=== PATIENT | female | born 1995 | race Caucasian/White ===

== ENCOUNTER 2019-01-04 17:29 | Emergency (ER) | payer BC, SELFPAY ==
[2019-01-04 17:42] VITALS: BP 105/70; PULSE 118; RESP 18; TEMP 37.5; O2SAT 100; BMI 25.9
--- NOTE | 2019-01-04 17:49 | DI.RAD.S_ITS ---
PROCEDURE: XR CHEST 2V INDICATIONS: pain right posterior chest w/ inispiration / movement. TECHNIQUE: 2 views of the chest were acquired. COMPARISON: None. FINDINGS: Surgical changes and devices: External material overlies left apex. Lungs and pleura: Lungs are clear as visualized with suboptimal evaluation of the left apex. No pleural effusions or pneumothorax. Mediastinum: Mediastinal contours are normal. Heart size is normal. Bones and chest wall: No suspicious bony abnormalities. Soft tissues appear unremarkable. IMPRESSION: No acute process. Dictated by: Abdoulaye Morales M.D. on 01/04/2019 at 20:32 Approved by: Abdoulaye Morales M.D. on 01/04/2019 at 20:34
--- NOTE | 2019-01-04 18:08 | ED.BACK ---
HPI - Back Pain/Injury General Chief Complaint: Back Pain/Injury Stated Complaint: NOT FEELING WELL Time Seen by Provider: 01/04/19 18:07 Source: patient and family Mode of arrival: ambulatory Limitations: no limitations History of Present Illness HPI Narrative: 23-year-old female occasional smoker presents with all host of symptoms but largely states she just does not feel well. She states she has been working 16 hour shifts back to back to back and feels run down. She is a bit dizzy and lightheaded and has developed a bit of a headache. She has had a poor appetite and states she surely has not been eating or drinking enough water. Furthermore she has had urinary frequency, urgency and states her urine is dark and foul smelling. She does have some left flank pain which is worse with motion and improves with rest. Patient also complains that she has developed a cold sore over the week and MD Complaint: back pain Onset (ago): day(s) Duration: progressively worsening Similar Symptoms Previously: No Location: left flank Severity: moderate Quality: aching Exacerbating factors: movement Associated symptoms: weakness, fatigue, increased urinary urgency, increased urinary frequency, fever and chills Related Data Home Medications Medication Instructions Recorded Confirmed acyclovir 800 mg PO TID 01/04/19 01/04/19 ibuprofen 200 mg PO Q6H PRN 01/04/19 01/04/19 Previous Rx's Medication Instructions Recorded acyclovir 400 mg PO TID 7 Days #21 tab 01/04/19 cephalexin [Keflex] 500 mg PO QID 10 Days #40 cap 01/04/19 Allergies Allergy/AdvReac Type Severity Reaction Status Date / Time No Known Drug Allergies Allergy Verified 01/04/19 17:47 Review of Systems Constitutional Reports chills, Reports fever(s), Reports headache(s), Denies lethargy and Reports weakness Eyes Denies change in vision, Denies eye discharge, Denies irritation and Denies loss of vision ENT Ears, Nose, Mouth, and Throat: Denies change in voice, Reports headache(s), Denies neck pain and Denies sore throat Cardiovascular Denies chest pain, Denies irregular heart rhythm, Denies lightheadedness, Denies palpitations, Denies dyspnea, Denies dyspnea on exertion and Denies orthopnea Respiratory Denies cough, Denies dyspnea, Denies dyspnea on exertion and Denies wheezing Gastrointestinal Gastrointestinal: Denies abdominal pain, Denies change in bowel habits, Denies diarrhea, Denies nausea and Denies vomiting Genitourinary Denies hematuria, Reports flank pain, Denies urinary incontinence and Reports urinary urgency Musculoskeletal Denies neck pain Integumentary/Breasts Denies pruritus, Denies erythema, Denies rash, Reports sores and Denies wounds Neurologic Denies confusion, Reports headache(s), Denies loss of vision and Reports weakness Psychiatric Denies anxiety, Denies confusion, Denies depression, Denies homicidal ideation and Denies suicidal ideation Endocrine Denies palpitations Hematologic/Lymphatic Denies easy bruising Allergic/Immunologic Denies wheezing PFSH Social History Smoking Status: Current every day smoker Social History Smoking Status: Current every day smoker Exam Narrative Exam Narrative: GENERAL: 23-year-old female clearly not feeling well, laying on her side HEAD: Atraumatic. Normocephalic. No temporal or scalp tenderness. EYES: Pupils equal round and reactive. Extraocular motions intact. No scleral icterus. No injection or drainage. ENT: Dry mucous membranes. 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 Nose without bleeding, purulent drainage or septal hematoma. Throat without erythema, tonsillar hypertrophy or exudate. Uvula midline. Airway patent. NECK: Trachea midline. No JVD or lymphadenopathy. Supple, nontender, no meningeal signs. CARDIOVASCULAR: Regular rate and rhythm without murmurs, gallops, or rubs. RESPIRATORY: Clear to auscultation. Breath sounds equal bilaterally. No wheezes, rales, or rhonchi. GASTROINTESTINAL: Abdomen soft, non-tender, nondistended. No hepato-splenomegaly, or palpable masses. No guarding. EXTREMITIES: No clubbing, cyanosis, or edema. No joint tenderness, effusion, or edema noted. BACK: Nontender without deformity or crepitance. No flank tenderness. NEURO: AOx3. SKIN: No rash or erythema. Initial Vital Signs Initial Vital Signs: Vital Signs Temperature 99.5 F 01/04/19 17:42 Pulse Rate 118 H 01/04/19 17:42 Respiratory Rate 18 01/04/19 17:42 Blood Pressure 105/70 01/04/19 17:42 Pulse Oximetry 100 01/04/19 17:42 Course Orders Ordered: ED Orders 01/04/19 17:49 XR chest 2V Stat 01/04/19 17:59 Complete Blood Count AUTO DIFF Stat Comprehensive Metabolic Panel Stat 01/04/19 20:02 Urine Culture Stat Urine Microscopic Stat Discontinued Medications Sodium Chloride (Normal Saline 0.9%) 1,000 mls @ 1,000 mls/hr IV BOLUS ONE Stop: 01/04/19 19:29 Last Infusion: 01/04/19 19:49 Dose: 0 mls/hr Admin: 01/04/19 18:54 Dose: 1,000 mls/hr Ceftriaxone Sodium/Dextrose (Rocephin) 1 gm in 50 mls @ 100 mls/hr IV NOW ONE Stop: 01/04/19 20:40 Last Infusion: 01/04/19 20:50 Dose: 0 mls/hr Admin: 01/04/19 20:20 Dose: 100 mls/hr Sodium Chloride (Normal Saline 0.9%) 1,000 mls @ 1,000 mls/hr IV BOLUS ONE Stop: 01/04/19 22:02 Last Infusion: 01/04/19 21:45 Dose: 0 mls/hr Admin: 01/04/19 20:20 Dose: 1,000 mls/hr Ketorolac Tromethamine (Toradol) 30 mg IV NOW ONE Stop: 01/04/19 18:50 Last Admin: 01/04/19 18:50 Dose: 30 mg Ondansetron HCl (Zofran Odt) 4 mg PO NOW ONE Stop: 01/04/19 18:14 Last Admin: 01/04/19 18:15 Dose: 4 mg Pantoprazole Sodium (Protonix) 40 mg IV NOW ONE Stop: 01/04/19 18:31 Last Admin: 01/04/19 18:54 Dose: 40 mg Vital Signs - 8 hr 01/04/19 17:42 01/04/19 18:14 01/04/19 20:33 Temperature 99.5 F Pulse Rate 118 H 102 H 92 H Respiratory Rate 18 16 Blood Pressure 105/70 Blood Pressure [Left Arm] 95/67 Pulse Oximetry 100 97 95 01/04/19 21:39 Temperature Pulse Rate 101 H Respiratory Rate 17 Blood Pressure Blood Pressure [Left Arm] 93/47 L Pulse Oximetry 99 MDM - Back Pain/Injury Lab Data Result diagrams: 01/04/19 17:59 01/04/19 17:59 Lab Results 06/01/04/19 01/04/19 Range/Units 17:59 17:59 20:02 WBC 13.1 H (4.5-11.0) X10^3/uL RBC 5.05 (4.0-5.2) X10^6/uL Hgb 14.6 (12.0-16.0) g/dL Hct 43.8 (36-46) % MCV 86.9 (80-100) fL MCH 28.9 (26-34) PG MCHC 33.3 (30-36) % RDW 13.3 (11.6-14.8) % Plt Count 259 (150-400) X10^3/uL Neut % (Auto) 80.0 H (50-75) % Lymph % (Auto) 9.9 L (25-40) % [place] % (Auto) 9.6 (3-14) % Eos % (Auto) 0.2 L (2-4) % Baso % (Auto) 0.3 (0-2) % Neut # (Auto) 92930 H (7519-2595) /uL Lymph # (Auto) 1300 (5605-1703) /uL [place] # (Auto) 1300 H (0-900) /uL Eos # (Auto) 0 (0-450) /uL Baso # (Auto) 0 (0-100) /uL Total Counted Cancelled Seg Neutrophils % Cancelled Band Neutrophils % Cancelled Lymphocytes % (Manual) Cancelled Atypical Lymphs % Cancelled Monocytes % (Manual) Cancelled Eosinophils % (Manual) Cancelled Basophils % (Manual) Cancelled Metamyelocytes % Cancelled Myelocytes % Cancelled Promyelocytes % Cancelled Blast Cells % Cancelled Neutrophils # (Manual) Cancelled Nucleated RBCs Cancelled Differential Comment Cancelled Hypersegmented Neuts Cancelled Hypogranular Neuts Cancelled Reactive Lymphocytes Cancelled Plasma Cells Cancelled Smudge Cells Cancelled Other Cell Type Cancelled Toxic Granulation Cancelled Toxic Vacuolation Cancelled Dohle Bodies Cancelled Juvenal Rods Cancelled WBC Morphology Comment Cancelled Platelet Estimate Cancelled Clumped Platelets Cancelled Plt Morphology Comment Cancelled RBC Morphology Cancelled Dimorphic RBCs Cancelled Polychromasia Cancelled Hypochromasia Cancelled Poikilocytosis Cancelled Basophilic Stippling Cancelled Anisocytosis Cancelled Microcytosis Cancelled Macrocytosis Cancelled Spherocytes Cancelled Pappenheimer Bodies Cancelled Sickle Cells Cancelled Target Cells Cancelled Tear Drop Cells Cancelled Ovalocytes Cancelled Stomatocytes Cancelled Helmet Cells Cancelled Dejesus-Needles Bodies Cancelled [place] Rings Cancelled [place] Cells Cancelled Acanthocytes (Spur) Cancelled Rouleaux Cancelled Schistocytes Cancelled Sodium 139 (137-145) mmol/L Potassium 4.0 (3.4-5.1) mmol/L Chloride 104 (98-107) mmol/L Carbon Dioxide 25 (22-32) mmol/L BUN 7 (7-17) mg/dL Creatinine 0.60 (0.52-1.04) mg/dL Estimated GFR > 60.0 (>60) mL/min BUN/Creatinine Ratio 11.7 (6-22) Glucose 91 (70-100) mg/dL Calcium 9.2 (8.4-10.2) mg/dL Total Bilirubin 0.5 (0.2-1.3) mg/dL AST 24 (14-36) IU/L ALT 20 (9-52) IU/L Alkaline Phosphatase 47 (38-126) U/L Total Protein 7.4 (6.3-8.2) g/dL Albumin 4.1 (3.5-5.0) g/dL Globulin 3.3 (1.7-4.1) g/dL Albumin/Globulin Ratio 1.2 (1.0-2.8) Urine RBC 5-10/hpf H (0-5/HPF) Urine WBC 30-100/hpf H (0-5/HPF) Ur Squamous Epith Cells 1-5 /hpf (0-5/HPF) Ur Transition Epith Cell 1-5/hpf (0-5/HPF) Urine Bacteria Many (>30) H (None) Ur Culture Indicated? Specimen cultured Point of Care Testing Test Results Negative Urine Dip Bedside Urine Glucose Negative Bedside Urine Bilirubin - Negative Bedside Urine Ketone +++ 80 Urine Specific [place] 1.020 Bedside Urine Occult Blood + Bedside Urine pH 6.0 Bedside Urine Protein +/- 15 Bedside Urine Urobilinogen - Negative Bedside Urine Nitrite + Positive Bedside Urine Leukocytes +++ 500 Esterase MDM Narrative Medical decision making narrative: 23F with multiple complaints including fatigue, JAVIER, urine trouble, flank pain and lip ulcers. She shows tremendous improvement with fluids, toradol and zofran. 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 Patient not septic, responds to fluids and feeling better. Patient and family had all questions answered to their apparent satisfaction Discharge Plan Departure Patient Disposition: Home Clinical Impression: Acute dehydration, Cold sore, Pyelonephritis Fatigue Qualifiers: Fatigue type: unspecified Qualified Code(s): R53.83 - Other fatigue Interventions: ED Discharge Assessment Last Done: 01/04/19 21:55 Instructions: DI for Dehydration -- Adult, DI for Cold Sores Activity Restrictions/Additional Instructions: *You have been diagnosed with [ pyelonephritis, dehydration, weakness ] *What to do: *Take medications as directed *Follow up with your primary care provider in 2-3 days, call for an appointment. Let them know you were seen in the Emergency Department and that we ask that you be seen in follow up *Return to ER if you should have any new, worsening or concerning symptoms Prescriptions: New acyclovir 400 mg tablet 400 mg PO TID 7 Days Qty: 21 RF: 0 cephalexin [Keflex] 500 mg capsule 500 mg PO QID 10 Days Qty: 40 RF: 0 No Action ibuprofen 200 mg Capsule 200 mg PO Q6H PRN (Reason: Pain (Scale Score 4-6)) RF: 0 acyclovir 400 mg Tablet 800 mg PO TID RF: 0
[2019-01-04 18:14] VITALS: PULSE 102; O2SAT 97
[2019-01-04] MEDS: ONDANSETRON 4 MG ODT PO (18:15)
[2019-01-04 18:35] LABS: Add Manual Diff / Slide Review NO; Alanine Aminotransferase 20 IU/L (9-52); Albumin 4.1 g/dL (3.5-5.0); Albumin Globulin Ratio 1.2 (1.0-2.8); Alkaline Phosphatase 47 U/L (38-126); Aspartate Aminotransferase 24 IU/L (14-36); BUN Creatinine Ratio 11.7 (6-22); Basophils Absolute Auto 0 /uL (0-100); Basophils Percent Auto 0.3 % (0-2); Bilirubin Total 0.5 mg/dL (0.2-1.3); Blood Urea Nitrogen 7 mg/dL (7-17); Calcium 9.2 mg/dL (8.4-10.2); Carbon Dioxide 25 mmol/L (22-32); Chloride 104 mmol/L (98-107); Eosinophils Absolute Auto 0 /uL (0-450); Eosinophils Percent Auto 0.2 % (2-4); Estimated Glomerular Filt Rate > 60.0 mL/min (>60); Globulin 3.3 g/dL (1.7-4.1); Glucose 91 mg/dL (70-100); HEMOLYSIS < 15 (0-50); Hematocrit 43.8 % (36-46); Hemoglobin 14.6 g/dL (12.0-16.0); Lymphocytes Absolute Auto 1300 /uL (1100-4500); Lymphocytes Percent Auto 9.9 % (25-40); Mean Corpuscular HGB Conc 33.3 % (30-36); Mean Corpuscular Hemoglobin 28.9 PG (26-34); Mean Corpuscular Volume 86.9 fL (80-100); Monocytes Absolute Auto 1300 /uL (0-900); Monocytes Percent Auto 9.6 % (3-14); Neutrophils Absolute Auto 10500 /uL (1500-7000); Platelet Count 259 X10^3/uL (150-400); Red Blood Cell Count 5.05 X10^6/uL (4.0-5.2); Red Cell Distribution Width 13.3 % (11.6-14.8); Sodium 139 mmol/L (137-145); Total Protein 7.4 g/dL (6.3-8.2); White Blood Cell Count 13.1 X10^3/uL (4.5-11.0)
[2019-01-04] MEDS: KETOROLAC 60 MG/2 ML VIAL 30 MG IV (18:50)
[2019-01-04] MEDS: PANTOPRAZOLE 40 MG VIAL IV (18:54)
[2019-01-04] MEDS: SODIUM CHLORIDE 0.9% 1,000 ML 1000 ML IV ×2 (18:54→20:20)
[2019-01-04 20:19] LABS: Bacteria Urine Many (>30); Culture Indicated Urine Specimen Cultured; RBC Urine 5-10/HPF (0-5/HPF); Squamous Epithelial Cell Urine 1-5 /HPF (0-5/HPF); Transitional Epi Cells Urine 1-5/HPF (0-5/HPF); WBC Urine 30-100/HPF (0-5/HPF)
[2019-01-04] MEDS: CEFTRIAXONE 1 GM/50 ML FROZ.PIGGY IV (20:20)
[2019-01-04 20:33] VITALS: BP 95/67; PULSE 92; RESP 16; O2SAT 95
[2019-01-04 21:39] VITALS: BP 93/47; PULSE 101; RESP 17; O2SAT 99
== END 2019-01-04 21:47 | disposition home or self-care (01) ==
PROVIDERS: Emergency Medicine; Emergency Provider Emergency Medicine
DX: E86.0 Dehydration (principal); B00.1 Herpesviral vesicular dermatitis; N12 Tubulo-interstitial nephritis, not specified as acute or chronic; R53.83 Other fatigue
CPT/HCPCS: 36415; 71046; 80053; 81003; 81015; 81025; 85025; 87077; 87086; 87186; 96361; 96365; 96375; 99284; C9113; J1885

== ENCOUNTER 2020-02-09 14:32 | Emergency (ER) | payer OTHER, MEDICAID, SELFPAY ==
[2020-02-09] VITALS (7 sets, daily range): BP systolic 102–118; BP diastolic 64–76; PULSE 81–104; RESP 8–24; TEMP 37; O2SAT 99–100; BMI 27.3
[2020-02-09 15:27] LABS: Prothrombin Time 11.9 SECONDS (10.1-12.7)
[2020-02-09 15:29] LABS: PTT Partial Thromboplastin Tim 31 SECONDS (26.4-36.2)
[2020-02-09 15:39] LABS: Alanine Aminotransferase 20 IU/L (<35); Albumin 3.9 g/dL (3.5-5.0); Albumin Globulin Ratio 1.3 (1.0-2.8); Alkaline Phosphatase 42 U/L (38-126); Aspartate Aminotransferase 30 IU/L (14-36); BUN Creatinine Ratio 16.7 (6-22); Bilirubin Total 0.5 mg/dL (0.2-1.3); Blood Urea Nitrogen 8 mg/dL (7-17); Carbon Dioxide 21 mmol/L (22-32); Chloride 109 mmol/L (98-107); Estimated Glomerular Filt Rate > 60.0 mL/min (>60); Glucose 98 mg/dL (70-100); HEMOLYSIS < 15 (0-50); Lipase 43 U/L (23-300); Potassium 3.9 mmol/L (3.4-5.1); Sodium 137 mmol/L (137-145); Total Protein 6.9 g/dL (6.3-8.2)
[2020-02-09 15:43] LABS: Add Manual Diff / Slide Review NO; Basophils Absolute Auto 100 /uL (0-100); Basophils Percent Auto 0.6 % (0-2); Eosinophils Absolute Auto 100 /uL (0-450); Eosinophils Percent Auto 1.1 % (2-4); Hematocrit 39.4 % (36-46); Hemoglobin 13.3 g/dL (12.0-16.0); Lymphocytes Absolute Auto 1700 /uL (1100-4500); Lymphocytes Percent Auto 17.6 % (25-40); Mean Corpuscular HGB Conc 33.8 % (30-36); Mean Corpuscular Hemoglobin 29.3 PG (26-34); Mean Corpuscular Volume 86.7 fL (80-100); Monocytes Absolute Auto 900 /uL (0-900); Monocytes Percent Auto 8.9 % (3-14); Neutrophils Absolute Auto 7000 /uL (1500-7000); Neutrophils Percent Auto 71.8 % (50-75); Platelet Count 250 X10^3/uL (150-400); Red Blood Cell Count 4.54 X10^6/uL (4.0-5.2); Red Cell Distribution Width 14.3 % (11.6-14.8); White Blood Cell Count 9.8 X10^3/uL (4.5-11.0)
--- NOTE | 2020-02-09 15:48 | ED_ITS ---
HPI - Abdominal Pain <Alonzo Whitt MD - Last Filed: 02/20/20 17:57> General Chief Complaint: Abdominal Pain Stated Complaint: severe abd pain/dizzy x2 days Time Seen by Provider: 02/09/20 15:41 Source: patient Mode of arrival: Wheelchair Limitations: no limitations History of Present Illness HPI narrative: Patient complains of ongoing 2 days constant upper and lower abdominal pain. Worse with movement. Better with lying still. No nausea or vomiting. At times feels dizzy. No chest pain. No back pain. No numbness tingling or weakness. LMP 4 weeks ago. Denies Related Data Home Medications Medication Instructions Recorded Confirmed acyclovir 800 mg PO TID 01/04/19 02/13/20 ibuprofen 200 mg PO Q6H PRN 01/04/19 02/13/20 Previous Rx's Medication Instructions Recorded prenat.vits,malina,gio-kubw-launs 1 tab PO DAILY #30 tab 02/09/20 hydrocodone-acetaminophen 1 tab PO Q4-6H PRN #10 tab 02/11/20 ondansetron 4 mg PO Q6H PRN #20 tab 02/11/20 Allergies Allergy/AdvReac Type Severity Reaction Status Date / Time No Known Drug Allergies Allergy Verified 02/13/20 15:50 Review of Systems <Alonzo Whitt MD - Last Filed: 02/20/20 17:57> Review of Systems Narrative: GENERAL: Denies chills, fatigue, malaise, fever, sweats. HEENT: Denies sinus pain, ear pain, sore throat, difficulty swallowing, dizziness. RESPIRATORY: Denies dyspnea, cough, wheezing, hemoptysis, sputum. CARDIOVASCULAR: Denies chest pain, palpitations, orthopnea, edema, GASTROINTESTINAL: Denies any nausea vomiting diarrhea. Complains of abdominal pain : Denies dysuria, frequency, incontinence, hematuria, urinary retention. MUSCULOSKELETAL: denies weakness, joint pain, or bony pain SKIN: Denies rash, skin lesions, or other NEUROLOGIC: Denies weakness, headache, numbness, change in speech, confusion, seizures, incoordination. PSYCHIATRIC: No concerning psychosocial issues. ROS Unobtainable: All systems reviewed & are unremarkable except as noted in HPI and below Patient History <Alonzo Whitt MD - Last Filed: 08/10/20 17:57> Medical History (Updated 02/19/20 @ 20:17 by Erin Vargas) Gluten enteropathy (Chronic) Social History Smoking Status: Current every day smoker Smoking Status: Current every day smoker alcohol intake frequency: 3 or more drinks per day Substance Use Type: does not use Exam <Alonzo Whitt MD - Last Filed: 02/20/20 17:57> Narrative Exam Narrative: GENERAL: patient appears stated age. Well-nourished, well- developed patient, in no distress, not toxic HEAD: Atraumatic. Normocephalic. EYES: Pupils equal round and reactive. Extraocular motions intact. No scleral icterus. No injection or drainage. ENT: Nose without bleeding, purulent drainage. Throat without erythema, tonsillar hypertrophy or exudate. Airway patent. NECK: Trachea midline. Non tender CARDIOVASCULAR: Regular rate and rhythm without murmurs, gallops, or rubs. RESPIRATORY: Clear to auscultation. Breath sounds equal bilaterally. No wheezes, rales, or rhonchi. GASTROINTESTINAL: Abdomen soft, mild diffuse tenderness no peritoneal signs bowel sounds present : female nurse Elen, sensory scientist, normal external exam. No blood or discharge in the vaginal vault, no CMT no blood at os or tissue at the os. Os is closed. No adnexal tenderness EXTREMITIES: No edema or joint tenderness. BACK: Nontender without deformity or crepitance. No flank tenderness. NEURO: AOx3. SKIN: No rash or erythema of visible areas PSYCH: Not anxious, is cooperative Initial Vital Signs Initial Vital Signs: Vital Signs Temperature 98.6 F 02/09/20 14:37 Pulse Rate 104 H 02/09/20 14:37 Respiratory Rate 14 02/09/20 14:37 Blood Pressure 108/76 02/09/20 14:37 Pulse Oximetry 100 02/09/20 14:37 <Marisela Mcclain MD - Last Filed: 02/09/20 23:53> Initial Vital Signs Initial Vital Signs: Vital Signs Temperature 98.6 F 02/09/20 14:37 Pulse Rate 104 H 02/09/20 14:37 Respiratory Rate 14 02/09/20 14:37 Blood Pressure 108/76 02/09/20 14:37 Pulse Oximetry 100 02/09/20 14:37 Course <Alonzo Whitt MD - Last Filed: 02/20/20 17:57> Course Course Narrative: s/o dr mcclain...will follow labs and s/w pt about decision about Orders Ordered: Discontinued Medications Sodium Chloride (Normal Saline 0.9%) 1,000 mls @ 1,000 mls/hr IV BOLUS ONE Stop: 02/09/20 16:46 Last Infusion: 02/09/20 17:13 Dose: 0 mls/hr Documented by: Admin: 02/09/20 16:25 Dose: 1,000 mls/hr Documented by: RADHA Magnesium Citrate (Magnesium Citrate) 300 ml PO NOW ONE Stop: 02/09/20 20:46 Last Admin: 02/09/20 20:49 Dose: 300 ml Documented by: RADHA Reevaluation(s) Reevaluation #1: Spoke with patient regarding discussion with OBGYN, patient does not know at this time whether she was taking with the or terminate. She needs time to think about it. Time: 19:39 Consultations Consultation #1: Spoke with obgyn dr lopez who referred me to dr davila...i s/w dr davila and he states patient has 2 choices. Terminate or continue with pr egnancy. If she desires to terminate the methotrexate 100 mg IM can be given here and he can follow patient tomorrow in the office. Second choice to continue with and would still need repeat 2 cycles of quantitative hCG. He would see patient as well in the office. Phone number [phone]. Time: 19:40 Vital Signs Vital signs: Vital Signs - 8 hr 02/09/20 16:00 02/09/20 16:30 02/09/20 17:00 Pulse Rate 81 86 86 Respiratory Rate 13 14 21 Blood Pressure 107/71 108/65 102/64 Pulse Oximetry 99 99 100 02/09/20 20:57 Pulse Rate 83 Respiratory Rate 12 Blood Pressure 118/69 Pulse Oximetry 99 <Marisela Mcclain MD - Last Filed: 02/09/20 23:53> Orders Ordered: Discontinued Medications Sodium Chloride (Normal Saline 0.9%) 1,000 mls @ 1,000 mls/hr IV BOLUS ONE Stop: 02/09/20 16:46 Last Infusion: 02/09/20 17:13 Dose: 0 mls/hr Documented by: Admin: 02/09/20 16:25 Dose: 1,000 mls/hr Documented by: RADHA Magnesium Citrate (Magnesium Citrate) 300 ml PO NOW ONE Stop: 02/09/20 20:46 Last Admin: 02/09/20 20:49 Dose: 300 ml Documented by: RADHA Vital Signs Vital signs: Vital Signs - 8 hr 02/09/20 16:00 02/09/20 16:30 02/09/20 17:00 Pulse Rate 81 86 86 Respiratory Rate 13 14 21 Blood Pressure 107/71 108/65 102/64 Pulse Oximetry 99 99 100 02/09/20 20:57 Pulse Rate 83 Respiratory Rate 12 Blood Pressure 118/69 Pulse Oximetry 99 MDM - Abdominal Pain <Alonzo Whitt MD - Last Filed: 02/20/20 17:57> Lab Data Attestation: I reviewed the patient's lab results. Result diagrams: 02/09/20 15:08 02/09/20 15:08 Labs: Lab Results 02/09/20 02/09/20 02/09/20 Range/Units 15:08 15:08 15:08 WBC 9.8 (4.5-11.0) X10^3/uL RBC 4.54 (4.0-5.2) X10^6/uL Hgb 13.3 (12.0-16.0) g/dL Hct 39.4 (36-46) % MCV 86.7 (80-100) fL MCH 29.3 (26-34) PG MCHC 33.8 (30-36) % RDW 14.3 (11.6-14.8) % Plt Count 250 (150-400) X10^3/uL Neut % (Auto) 71.8 (50-75) % Lymph % (Auto) 17.6 L (25-40) % [place] % (Auto) 8.9 (3-14) % Eos % (Auto) 1.1 L (2-4) % Baso % (Auto) 0.6 (0-2) % Neut # (Auto) 7000 (2746-5426) /uL Lymph # (Auto) 1700 (8464-1742) /uL [place] # (Auto) 900 (0-900) /uL Eos # (Auto) 100 (0-450) /uL Baso # (Auto) 100 (0-100) /uL PT 11.9 (10.1-12.7) SECONDS INR 1.0 (0.9-1.3) APTT 31 (26.4-36.2) SECONDS Sodium 137 (137-145) mmol/L Potassium 3.9 (3.4-5.1) mmol/L Chloride 109 H (98-107) mmol/L Carbon Dioxide 21 L (22-32) mmol/L BUN 8 (7-17) mg/dL Creatinine 0.48 L (0.52-1.04) mg/dL Estimated GFR > 60.0 (>60) mL/min BUN/Creatinine Ratio 16.7 (6-22) Glucose 98 (70-100) mg/dL Calcium 9.0 (8.4-10.2) mg/dL Total Bilirubin 0.5 (0.2-1.3) mg/dL AST 30 (14-36) IU/L ALT 20 (<35) IU/L Alkaline Phosphatase 42 (38-126) U/L Total Protein 6.9 (6.3-8.2) g/dL Albumin 3.9 (3.5-5.0) g/dL Globulin 3.0 (1.7-4.1) g/dL Albumin/Globulin Ratio 1.3 (1.0-2.8) Lipase 43 (23-300) U/L HCG, Quant mIU/mL Serum , Qual (Negative) Ref Test (Refrig) (.) Blood Type Antibody Screen 02/09/20 02/09/20 02/09/20 Range/Units 15:08 15:08 18:05 WBC (4.5-11.0) X10^3/uL RBC (4.0-5.2) X10^6/uL Hgb (12.0-16.0) g/dL Hct (36-46) % MCV (80-100) fL MCH (26-34) PG MCHC (30-36) % RDW (11.6-14.8) % Plt Count (150-400) X10^3/uL Neut % (Auto) (50-75) % Lymph % (Auto) (25-40) % [place] % (Auto) (3-14) % Eos % (Auto) (2-4) % Baso % (Auto) (0-2) % Neut # (Auto) (9589-4618) /uL Lymph # (Auto) (5806-7875) /uL [place] # (Auto) (0-900) /uL Eos # (Auto) (0-450) /uL Baso # (Auto) (0-100) /uL PT (10.1-12.7) SECONDS INR (0.9-1.3) APTT (26.4-36.2) SECONDS Sodium (137-145) mmol/L Potassium (3.4-5.1) mmol/L Chloride (98-107) mmol/L Carbon Dioxide (22-32) mmol/L BUN (7-17) mg/dL Creatinine (0.52-1.04) mg/dL Estimated GFR (>60) mL/min BUN/Creatinine Ratio (6-22) Glucose (70-100) mg/dL Calcium (8.4-10.2) mg/dL Total Bilirubin (0.2-1.3) mg/dL AST (14-36) IU/L ALT (<35) IU/L Alkaline Phosphatase (38-126) U/L Total Protein (6.3-8.2) g/dL Albumin (3.5-5.0) g/dL Globulin (1.7-4.1) g/dL Albumin/Globulin Ratio (1.0-2.8) Lipase (23-300) U/L HCG, Quant 354 mIU/mL Serum , Qual Positive H (Negative) Ref Test (Refrig) Comment (.) Blood Type Antibody Screen 02/09/20 Range/Units 19:05 WBC (4.5-11.0) X10^3/uL RBC (4.0-5.2) X10^6/uL Hgb (12.0-16.0) g/dL Hct (36-46) % MCV (80-100) fL MCH (26-34) PG MCHC (30-36) % RDW (11.6-14.8) % Plt Count (150-400) X10^3/uL Neut % (Auto) (50-75) % Lymph % (Auto) (25-40) % [place] % (Auto) (3-14) % Eos % (Auto) (2-4) % Baso % (Auto) (0-2) % Neut # (Auto) (9588-1502) /uL Lymph # (Auto) (9596-3545) /uL [place] # (Auto) (0-900) /uL Eos # (Auto) (0-450) /uL Baso # (Auto) (0-100) /uL PT (10.1-12.7) SECONDS INR (0.9-1.3) APTT (26.4-36.2) SECONDS Sodium (137-145) mmol/L Potassium (3.4-5.1) mmol/L Chloride (98-107) mmol/L Carbon Dioxide (22-32) mmol/L BUN (7-17) mg/dL Creatinine (0.52-1.04) mg/dL Estimated GFR (>60) mL/min BUN/Creatinine Ratio (6-22) Glucose (70-100) mg/dL Calcium (8.4-10.2) mg/dL Total Bilirubin (0.2-1.3) mg/dL AST (14-36) IU/L ALT (<35) IU/L Alkaline Phosphatase (38-126) U/L Total Protein (6.3-8.2) g/dL Albumin (3.5-5.0) g/dL Globulin (1.7-4.1) g/dL Albumin/Globulin Ratio (1.0-2.8) Lipase (23-300) U/L HCG, Quant mIU/mL Serum , Qual (Negative) Ref Test (Refrig) (.) Blood Type A Negative Antibody Screen Negative Point of care testing: Urine Dip Bedside Urine Glucose Negative Bedside Urine Bilirubin - Negative Bedside Urine Ketone +/- 5 Urine Specific [place] 1.015 Bedside Urine Occult Blood - Negative Bedside Urine pH 7.0 Bedside Urine Protein - Negative Bedside Urine Urobilinogen - Negative Bedside Urine Nitrite - Negative Bedside Urine Leukocytes - Negative Esterase Imaging Data US - OB: Radiologist's Impression: [address] [address] Ultrasound Report Signed Patient: Kaylan Horn#: [id number] : 1995Acct:[id number] Age/Sex: 24 / FDate of Service: 02/09/20 Loc: ED Accession Number: [id number] Procedure: US OB <= 14 weeks fetus Ordering Provider: Alonzo Whitt MD PROCEDURE: US OB TRANSVAGINAL INDICATIONS: ABDOMINAL PAIN RULE OUT ECTOPIC OUTSIDE/PRIOR DATING DATA: Last menstrual period (LMP): Unknown. LMP-based estimated date of delivery (STEPHANIE): Unknown First dating scan (date and location): 02/09/2020. Estimated date of delivery (STEPHANIE) from first dating scan: N/A TECHNIQUE: Real-time scanning was performed of the fetus, with image documentation. Endovaginal scanning: Performed for better visualization COMPARISON: None. FINDINGS: No findings of an intrauterine can be seen. There is hemorrhagic fluid seen within the cul-de-sac and within the adnexal regions. There is a potential right adnexal mass seen that measures 1.9 x 1.9 x 1.6 cm. Overall increased vascularity can be seen involving the right adnexal region. At a site of specific pain, 1 cm superior and to the left of the umbilicus, no abnormalities are seen at this site. The uterus measures 9.3 x 4.2 x 5.3 cm. The right ovary measures 4.6 x 2.5 x 3.3 cm, and demonstrates poorly defined borders. The left ovary measures 3.9 x 2.1 x 2 cm. A complex cyst is seen within the left ovary. IMPRESSION: An intrauterine is not seen. There is a potential ectopic seen on the right. A gynecological consultation is recommended. Close clinical followup, with serial beta-hCG and serial ultrasound are recommended, as clinically appropriate. Potential left ovarian hemorrhagic cyst versus corpus luteum. Note: Dr. Whitt was not available to discuss this case at the time of this dictation. Case discussed by telephone with nurse Barrett at 5:13 p.m. [place] time on February 09, 2020. He will discuss the case with Dr. Whitt, who will call back if there are any questions. Dictated by: Nnamdi López M.D. on 02/09/2020 at 17:04 Approved by: Nnamdi López M.D. on 02/09/2020 at 17:15 MDM Narrative Medical decision making narrative: Patient has follow-up. Appropriate for discharge home. OBGYN consult completed. Dr. Davila.. Has follow-up tomorrow. Has plan in place <Marisela Mcclain MD - Last Filed: 02/09/20 23:53> Medical Records Attestation: I reviewed the patient's medical records. Lab Data Attestation: I reviewed the patient's lab results. Labs: Lab Results 02/09/20 02/09/20 02/09/20 Range/Units 15:08 15:08 15:08 WBC 9.8 (4.5-11.0) X10^3/uL RBC 4.54 (4.0-5.2) X10^6/uL Hgb 13.3 (12.0-16.0) g/dL Hct 39.4 (36-46) % MCV 86.7 (80-100) fL MCH 29.3 (26-34) PG MCHC 33.8 (30-36) % RDW 14.3 (11.6-14.8) % Plt Count 250 (150-400) X10^3/uL Neut % (Auto) 71.8 (50-75) % Lymph % (Auto) 17.6 L (25-40) % [place] % (Auto) 8.9 (3-14) % Eos % (Auto) 1.1 L (2-4) % Baso % (Auto) 0.6 (0-2) % Neut # (Auto) 7000 (6728-2210) /uL Lymph # (Auto) 1700 (1944-7122) /uL [place] # (Auto) 900 (0-900) /uL Eos # (Auto) 100 (0-450) /uL Baso # (Auto) 100 (0-100) /uL PT 11.9 (10.1-12.7) SECONDS INR 1.0 (0.9-1.3) APTT 31 (26.4-36.2) SECONDS Sodium 137 (137-145) mmol/L Potassium 3.9 (3.4-5.1) mmol/L Chloride 109 H (98-107) mmol/L Carbon Dioxide 21 L (22-32) mmol/L BUN 8 (7-17) mg/dL Creatinine 0.48 L (0.52-1.04) mg/dL Estimated GFR > 60.0 (>60) mL/min BUN/Creatinine Ratio 16.7 (6-22) Glucose 98 (70-100) mg/dL Calcium 9.0 (8.4-10.2) mg/dL Total Bilirubin 0.5 (0.2-1.3) mg/dL AST 30 (14-36) IU/L ALT 20 (<35) IU/L Alkaline Phosphatase 42 (38-126) U/L Total Protein 6.9 (6.3-8.2) g/dL Albumin 3.9 (3.5-5.0) g/dL Globulin 3.0 (1.7-4.1) g/dL Albumin/Globulin Ratio 1.3 (1.0-2.8) Lipase 43 (23-300) U/L HCG, Quant mIU/mL Serum , Qual (Negative) Ref Test (Refrig) (.) Blood Type Antibody Screen 02/09/20 02/09/20 02/09/20 Range/Units 15:08 15:08 18:05 WBC (4.5-11.0) X10^3/uL RBC (4.0-5.2) X10^6/uL Hgb (12.0-16.0) g/dL Hct (36-46) % MCV (80-100) fL MCH (26-34) PG MCHC (30-36) % RDW (11.6-14.8) % Plt Count (150-400) X10^3/uL Neut % (Auto) (50-75) % Lymph % (Auto) (25-40) % [place] % (Auto) (3-14) % Eos % (Auto) (2-4) % Baso % (Auto) (0-2) % Neut # (Auto) (1306-2124) /uL Lymph # (Auto) (8255-8168) /uL [place] # (Auto) (0-900) /uL Eos # (Auto) (0-450) /uL Baso # (Auto) (0-100) /uL PT (10.1-12.7) SECONDS INR (0.9-1.3) APTT (26.4-36.2) SECONDS Sodium (137-145) mmol/L Potassium (3.4-5.1) mmol/L Chloride (98-107) mmol/L Carbon Dioxide (22-32) mmol/L BUN (7-17) mg/dL Creatinine (0.52-1.04) mg/dL Estimated GFR (>60) mL/min BUN/Creatinine Ratio (6-22) Glucose (70-100) mg/dL Calcium (8.4-10.2) mg/dL Total Bilirubin (0.2-1.3) mg/dL AST (14-36) IU/L ALT (<35) IU/L Alkaline Phosphatase (38-126) U/L Total Protein (6.3-8.2) g/dL Albumin (3.5-5.0) g/dL Globulin (1.7-4.1) g/dL Albumin/Globulin Ratio (1.0-2.8) Lipase (23-300) U/L HCG, Quant 354 mIU/mL Serum , Qual Positive H (Negative) Ref Test (Refrig) Comment (.) Blood Type Antibody Screen 02/09/20 Range/Units 19:05 WBC (4.5-11.0) X10^3/uL RBC (4.0-5.2) X10^6/uL Hgb (12.0-16.0) g/dL Hct (36-46) % MCV (80-100) fL MCH (26-34) PG MCHC (30-36) % RDW (11.6-14.8) % Plt Count (150-400) X10^3/uL Neut % (Auto) (50-75) % Lymph % (Auto) (25-40) % [place] % (Auto) (3-14) % Eos % (Auto) (2-4) % Baso % (Auto) (0-2) % Neut # (Auto) (4454-1367) /uL Lymph # (Auto) (8352-3948) /uL [place] # (Auto) (0-900) /uL Eos # (Auto) (0-450) /uL Baso # (Auto) (0-100) /uL PT (10.1-12.7) SECONDS INR (0.9-1.3) APTT (26.4-36.2) SECONDS Sodium (137-145) mmol/L Potassium (3.4-5.1) mmol/L Chloride (98-107) mmol/L Carbon Dioxide (22-32) mmol/L BUN (7-17) mg/dL Creatinine (0.52-1.04) mg/dL Estimated GFR (>60) mL/min BUN/Creatinine Ratio (6-22) Glucose (70-100) mg/dL Calcium (8.4-10.2) mg/dL Total Bilirubin (0.2-1.3) mg/dL AST (14-36) IU/L ALT (<35) IU/L Alkaline Phosphatase (38-126) U/L Total Protein (6.3-8.2) g/dL Albumin (3.5-5.0) g/dL Globulin (1.7-4.1) g/dL Albumin/Globulin Ratio (1.0-2.8) Lipase (23-300) U/L HCG, Quant mIU/mL Serum , Qual (Negative) Ref Test (Refrig) (.) Blood Type A Negative Antibody Screen Negative Point of care testing: Urine Dip Bedside Urine Glucose Negative Bedside Urine Bilirubin - Negative Bedside Urine Ketone +/- 5 Urine Specific [place] 1.015 Bedside Urine Occult Blood - Negative Bedside Urine pH 7.0 Bedside Urine Protein - Negative Bedside Urine Urobilinogen - Negative Bedside Urine Nitrite - Negative Bedside Urine Leukocytes - Negative Esterase MDM Narrative Medical decision making narrative: Care is assumed prior to discharge. Patient has multiple additional questions. Initial complaint was upper abdominal pain. She states that she has not had a bowel movement for 2-3 days and typically has a bowel movement daily. She notes acute pain after squatting down 2 days ago. There is hemorrhagic fluid within the cul-de-sac and a complex cyst within the left ovary. Possibility of ovarian cyst with rupture as a source of her pain is certainly possible. Constipation is also possible. With her quantitative hCG at only 354 there remains significant diagnostic uncertainty with the pelvic ultrasound was done. No obvious intrauterine findings however that may be expected at such a low HCG. Fullness in the right adnexa also is concerning for possible ectopic . At this point patient is certainly considering continuing the if it is intrauterine. For the time being will send her home with magnesium citrate to see if cleansing her bowels is helpful in alleviating the gassy and upper abdominal pain. She needs to call OBGYN tomorrow, Dr. Davila will be expecting to see her tomorrow. At that time he can help her work through some of the diagnostic uncertainty to decide if this truly is an ectopic or an intrauterine and what her next steps will be. She is safe for home discharge at this time Discharge Plan Departure Patient Disposition: Home Clinical Impression: Abdominal pain Qualifiers: Abdominal location: right lower quadrant Qualified Code(s): R10.31 - Right lower quadrant pain Qualifiers: Weeks of gestation: less than 8 weeks Qualified Code(s): Z3A.01 - Less than 8 weeks gestation of Discharge Date/Time: 02/09/20 20:59 Instructions: DI for Ectopic , DI for Abdominal Pain-Adult Activity Restrictions/Additional Instructions: Call Dr. Davila' office in the morning and inform the office that he was contacted tonight and he needs to see you in the office for repeat laboratory studies regarding possible ectopic . He is aware of your care. For the original abdominal pain for which she came in, I am going to suggest that you drink a bottle of magnesium citrate this evening and see if having of bowel movement gets rid of the gassy upper abdominal pain that you are noticing. Return immediately if worse for any questions or concerns or increased pain or have any vaginal bleeding Prescriptions: New prenat.vits,malina,[id number] Tablet 1 tab PO DAILY Qty: 30 RF: 0 No Action ibuprofen 200 mg Capsule 200 mg PO Q6H PRN (Reason: Pain (Scale Score 4-6)) RF: 0 acyclovir 400 mg Tablet 800 mg PO TID RF: 0 hydrocodone-acetaminophen 5-325 mg tablet 1 tab PO Q4-6H PRN (Reason: pain) Qty: 10 RF: 0 ondansetron 4 mg tablet,disintegrating 4 mg PO Q6H PRN (Reason: nausea and vomiting) Qty: 20 RF: 0 Referrals: Hao Davila MD [Physician] -
[2020-02-09 16:00] LABS: Pregnancy Test Serum,Qual Positive (Negative)
--- NOTE | 2020-02-09 16:16 | DI.US.S_ITS ---
PROCEDURE: US OB TRANSVAGINAL INDICATIONS: ABDOMINAL PAIN RULE OUT ECTOPIC OUTSIDE/PRIOR DATING DATA: Last menstrual period (LMP): Unknown. LMP-based estimated date of delivery (STEPHANIE): Unknown First dating scan (date and location): 02/09/2020. Estimated date of delivery (STEPHANIE) from first dating scan: N/A TECHNIQUE: Real-time scanning was performed of the fetus, with image documentation. Endovaginal scanning: Performed for better visualization COMPARISON: None. FINDINGS: No findings of an intrauterine can be seen. There is hemorrhagic fluid seen within the cul-de-sac and within the adnexal regions. There is a potential right adnexal mass seen that measures 1.9 x 1.9 x 1.6 cm. Overall increased vascularity can be seen involving the right adnexal region. At a site of specific pain, 1 cm superior and to the left of the umbilicus, no abnormalities are seen at this site. The uterus measures 9.3 x 4.2 x 5.3 cm. The right ovary measures 4.6 x 2.5 x 3.3 cm, and demonstrates poorly defined borders. The left ovary measures 3.9 x 2.1 x 2 cm. A complex cyst is seen within the left ovary. IMPRESSION: An intrauterine is not seen. There is a potential ectopic seen on the right. A gynecological consultation is recommended. Close clinical followup, with serial beta-hCG and serial ultrasound are recommended, as clinically appropriate. Potential left ovarian hemorrhagic cyst versus corpus luteum. Note: Dr. Whitt was not available to discuss this case at the time of this dictation. Case discussed by telephone with nurse Barrett at 5:13 p.m. [place] time on February 09, 2020. He will discuss the case with Dr. Whitt, who will call back if there are any questions. Dictated by: Nnamdi López M.D. on 02/09/2020 at 17:04 Approved by: Nnamdi López M.D. on 02/09/2020 at 17:15
[2020-02-09] MEDS: SODIUM CHLORIDE 0.9% 1,000 ML 1000 ML IV (16:25)
[2020-02-09 16:49] LABS: HCG Quantitative /Beta subunit 354 mIU/mL
--- NOTE | 2020-02-09 18:13 | PC.NURSE ---
standby for pelvic patient tolerated well
[2020-02-09] MEDS: MAGNESIUM CITRATE 300 ML SOLUTION PO (20:49)
== END 2020-02-09 20:59 | disposition home or self-care (01) ==
PROVIDERS: Emergency Provider Emergency Medicine
DX: R10.84 Generalized abdominal pain (principal); Z32.01 Encounter for pregnancy test, result positive; Z3A.01 Less than 8 weeks gestation of pregnancy
CPT/HCPCS: 36415; 76801; 76817; 80053; 81003; 83690; 84702; 84703; 85025; 85610; 85730; 86850; 86900; 86901; 87210; 96360; 99285

== ENCOUNTER 2020-02-11 13:13 | Emergency (ER) | payer OTHER, MEDICAID, SELFPAY ==
[2020-02-11 13:15] VITALS: BP 128/80; PULSE 100; RESP 18; TEMP 36.9; O2SAT 100
[2020-02-11 13:45] LABS: Add Manual Diff / Slide Review NO; Basophils Absolute Auto 0 /uL (0-100); Basophils Percent Auto 0.6 % (0-2); Eosinophils Absolute Auto 100 /uL (0-450); Hematocrit 40.8 % (36-46); Hemoglobin 13.9 g/dL (12.0-16.0); Lymphocytes Absolute Auto 2500 /uL (1100-4500); Lymphocytes Percent Auto 29.4 % (25-40); Mean Corpuscular HGB Conc 34.1 % (30-36); Mean Corpuscular Hemoglobin 29.7 PG (26-34); Mean Corpuscular Volume 87.1 fL (80-100); Monocytes Absolute Auto 900 /uL (0-900); Monocytes Percent Auto 11.1 % (3-14); Neutrophils Absolute Auto 4900 /uL (1500-7000); Neutrophils Percent Auto 57.9 % (50-75); Platelet Count 276 X10^3/uL (150-400); Red Blood Cell Count 4.68 X10^6/uL (4.0-5.2); Red Cell Distribution Width 14.2 % (11.6-14.8); White Blood Cell Count 8.4 X10^3/uL (4.5-11.0)
[2020-02-11 13:47] LABS: Alanine Aminotransferase 23 IU/L (<35); Albumin 4.4 g/dL (3.5-5.0); Albumin Globulin Ratio 1.3 (1.0-2.8); Alkaline Phosphatase 50 U/L (38-126); Aspartate Aminotransferase 35 IU/L (14-36); BUN Creatinine Ratio 15.3 (6-22); Bilirubin Total 0.4 mg/dL (0.2-1.3); Blood Urea Nitrogen 9 mg/dL (7-17); Calcium 9.3 mg/dL (8.4-10.2); Carbon Dioxide 23 mmol/L (22-32); Chloride 106 mmol/L (98-107); Estimated Glomerular Filt Rate > 60.0 mL/min (>60); Globulin 3.3 g/dL (1.7-4.1); Glucose 92 mg/dL (70-100); HEMOLYSIS < 15 (0-50); Potassium 3.8 mmol/L (3.4-5.1); Sodium 137 mmol/L (137-145); Total Protein 7.7 g/dL (6.3-8.2)
--- NOTE | 2020-02-11 13:58 | DI.US.S_ITS ---
PROCEDURE: US PELVIC COMPLETE INDICATIONS: FOLLOW-UP POSSIBLE ECTOPIC; WORSENING PAIN TECHNIQUE: Real-time scanning was performed of the pelvic organs, with image documentation. Additional endovaginal scanning was necessary due to incomplete visualization of the adnexal and endometrial structures by transabdominal scanning. COMPARISON: [facility], US, US OB TRANSVAGINAL, 02/09/2020, 17:04. FINDINGS: Transabdominal scanning: Limited scanning through the kidneys shows no hydronephrosis. Minimal echogenic fluid within the posterior cul-de-sac and left adnexal region. Endovaginal scanning: Uterus: Uterus is normal in size at 9.3 x 4.1 x 5.1 cm. The endometrium measures 6 mm in combined thickness. No intrauterine identified. Ovaries: Right ovary measures 4.2 x 2.0 x 2.5 cm. Left ovary measures 4.0 x 1.5 x 2.6 cm. Complex right adnexal mass measuring 2.0 x 2.1 x 2.0 cm is seen superior to the right ovary (previously 1.9 x 1.9 x 1.6 cm. 1.5 x 1.5 x 1.2 cm solid appearing lesion involving the right ovary, possibly complex cyst although cannot exclude ectopic . IMPRESSION: Complex right adnexal mass, slightly increased in size since 02/09/20 as above. As before, cannot exclude ectopic . Additional solid versus complex cystic lesion involving the right ovary. No intrauterine identified Dictated by: Morgan Chong M.D. on 02/11/2020 at 15:10 Approved by: Morgan Chong M.D. on 02/11/2020 at 15:15
[2020-02-11 14:00] VITALS: BP 115/80; PULSE 84; RESP 15; O2SAT 100
[2020-02-11 14:04] LABS: HCG Quantitative /Beta subunit 343.7 mIU/mL
[2020-02-11] MEDS: LIDOCAINE PATCH 1 EACH ADH..PATCH TOP (14:18)
[2020-02-11] MEDS: ONDANSETRON 4 MG/2 ML INJ IV (14:19)
[2020-02-11 15:33] LABS: UR Morphine/Opiate cutoff 300 Negative (Negative); Ur Creatinine Normal (Normal); Ur Specific Gravity Normal (Normal); Urine Amphetamines Negative (Negative); Urine Barbiturates Negative (Negative); Urine Benzodiazepines Negative (Negative); Urine Cocaine Negative (Negative); Urine MDMA Negative (Negative); Urine Methadone Negative (Negative); Urine Methamphetamines Negative (Negative); Urine Oxycodone Negative (Negative); Urine Phencyclidine Negative (Negative); Urine Tetrahydrocannabinol Negative (Negative); Urine Tricyclic Antidepressant Negative (Negative); Urine pH Normal (Normal)
--- NOTE | 2020-02-11 15:40 | ED_ITS ---
HPI - Abdominal Pain <SEAN Davalos - Last Filed: 02/11/20 20:03> General Chief Complaint: Abdominal Pain Stated Complaint: Possible Ectopic Time Seen by Provider: 02/11/20 13:25 Source: patient Mode of arrival: Ambulatory Limitations: no limitations History of Present Illness HPI narrative: The patient is a 24-year-old female current smoker with history of 1 miscarriage who presents with a chief complaint of right lower quadrant pain and the possibility of an ectopic . She was seen here at this emergency department on 02/09/2020 for abdominal pain, was found to have a positive on urine a hCG quant at 354. She had a pelvic ultrasound done which showed no findings of an intrauterine , as well as a potential ectopic on the right side. The potential right adnexal masses 1.9 x 1.9 x 1.6 cm. She then followed up with Dr. Adam yesterday, 02/09. It they discussed that her beta hCG is too low to make a determination, more likely than not this was an intrauterine with a cyst. They planned for a repeat HCG on ThursdayFebruary 10. Also repeat HCG on Thursday the with an office visit at that point in time and likely repeat ultrasound. The patient presents to the emergency department because of increased pain in her lower right quadrant and cramping. She denies any vaginal bleeding or vaginal discharge. She denies any fevers nausea vomiting or diarrhea. That the pain radiates from right lower quadrant up to her right shoulder. She denies any dysuria urgency or frequency. Related Data Home Medications Medication Instructions Recorded Confirmed acyclovir 800 mg PO TID 01/04/19 02/10/20 ibuprofen 200 mg PO Q6H PRN 01/04/19 02/10/20 Previous Rx's Medication Instructions Recorded prenat.vits,malina,[id number] 1 tab PO DAILY #30 tab 02/09/20 hydrocodone-acetaminophen 1 tab PO Q4-6H PRN #10 tab 02/11/20 ondansetron 4 mg PO Q6H PRN #20 tab 02/11/20 Allergies Allergy/AdvReac Type Severity Reaction Status Date / Time No Known Drug Allergies Allergy Verified 02/10/20 13:58 Review of Systems <SEAN Davalos - Last Filed: 02/11/20 20:03> Review of Systems Narrative: GENERAL: Denies chills, fatigue, malaise, fever, sweats. HEENT: Denies sinus pain, ear pain, sore throat, difficulty swallowing, dizziness. RESPIRATORY: Denies dyspnea, cough, wheezing, hemoptysis, sputum. CARDIOVASCULAR: Denies chest pain, palpitations, orthopnea, edema, GASTROINTESTINAL: See HPI : See HPI MUSCULOSKELETAL: denies weakness, joint pain, or bony pain SKIN: Denies rash, skin lesions, or other NEUROLOGIC: Denies weakness, headache, numbness, change in speech, confusion, seizures, incoordination. PSYCHIATRIC: No concerning psychosocial issues. 12 point review of systems is negative except for those stated above Patient History <SEAN Davalos - Last Filed: 02/11/20 20:03> Social History Smoking Status: Current every day smoker Smoking Status: Current every day smoker alcohol intake frequency: 3 or more drinks per day Substance Use Type: does not use Exam <SEAN Davalos - Last Filed: 02/11/20 20:03> Narrative Exam Narrative: GENERAL: This is a well-nourished, well-developed patient, in no acute distress HEAD: Atraumatic. Normocephalic. No temporal or scalp tenderness. EYES: Pupils equal round and reactive. Extraocular motions intact. No scleral icterus. No injection or drainage. ENT: Nose without bleeding, purulent drainage or septal hematoma. Wearing a mask Airway patent. NECK: Trachea midline. No JVD or lymphadenopathy. Supple, nontender, no meningeal signs. CARDIOVASCULAR: Regular rate and rhythm without murmurs, gallops, or rubs. RESPIRATORY: Clear to auscultation. Breath sounds equal bilaterally. No wheezes, rales, or rhonchi. No cough. No increased respiratory effort. No accessory muscle use. GASTROINTESTINAL: Abdomen soft, diffusely tender, nondistended. No hepato- splenomegaly, or palpable masses. No guarding. EXTREMITIES: No clubbing, cyanosis, or edema. No joint tenderness, effusion, or edema noted. BACK: Nontender without deformity or crepitance. No flank tenderness. NEURO: AOx3. SKIN: No rash or erythema on visible skin Initial Vital Signs Initial Vital Signs: Vital Signs Temperature 98.5 F 02/11/20 13:15 Pulse Rate 100 H 02/11/20 13:15 Respiratory Rate 18 02/11/20 13:15 Blood Pressure 128/80 02/11/20 13:15 Pulse Oximetry 100 02/11/20 13:15 <Mahendra Walden MD - Last Filed: 02/12/20 19:21> Initial Vital Signs Initial Vital Signs: Vital Signs Temperature 98.5 F 02/11/20 13:15 Pulse Rate 100 H 02/11/20 13:15 Respiratory Rate 18 02/11/20 13:15 Blood Pressure 128/80 02/11/20 13:15 Pulse Oximetry 100 02/11/20 13:15 Scores <SEAN Davalos - Last Filed: 02/11/20 20:03> GCS Corona coma scale eye opening: Spontaneous Corona coma scale verbal response: Orientated Corona coma scale motor response: Obey commands Corona coma scale total score: 15 Course <SEAN Davalos - Last Filed: 02/11/20 20:03> Orders Ordered: Discontinued Medications Lidocaine (Lidoderm) 1 each TOP NOW ONE Stop: 02/11/20 13:59 Last Admin: 02/11/20 14:18 Dose: 1 each Documented by: AUNG Ondansetron HCl (Zofran) 4 mg IV NOW ONE Stop: 02/11/20 13:59 Last Admin: 02/11/20 14:19 Dose: 4 mg Documented by: ANUG Vital Signs Vital signs: Vital Signs - 8 hr 02/11/20 13:15 02/11/20 14:00 02/11/20 16:54 Temperature 98.5 F Pulse Rate 100 H 84 69 Respiratory Rate 18 15 15 Blood Pressure 128/80 115/80 115/72 Pulse Oximetry 100 100 100 <Mahendra Walden MD - Last Filed: 02/12/20 19:21> Orders Ordered: Discontinued Medications Lidocaine (Lidoderm) 1 each TOP NOW ONE Stop: 02/11/20 13:59 Last Admin: 02/11/20 14:18 Dose: 1 each Documented by: AUNG Ondansetron HCl (Zofran) 4 mg IV NOW ONE Stop: 02/11/20 13:59 Last Admin: 02/11/20 14:19 Dose: 4 mg Documented by: AUNG Vital Signs Vital signs: Vital Signs - 8 hr 02/11/20 13:15 02/11/20 14:00 02/11/20 16:54 Temperature 98.5 F Pulse Rate 100 H 84 69 Respiratory Rate 18 15 15 Blood Pressure 128/80 115/80 115/72 Pulse Oximetry 100 100 100 MDM - Abdominal Pain <KARLEE DavalosP- - Last Filed: 02/11/20 20:03> Lab Data Result diagrams: 02/11/20 13:25 02/11/20 13:25 Labs: Lab Results 02/11/20 02/11/20 02/11/20 Range/Units 13:25 13:25 13:25 WBC 8.4 (4.5-11.0) X10^3/uL RBC 4.68 (4.0-5.2) X10^6/uL Hgb 13.9 (12.0-16.0) g/dL Hct 40.8 (36-46) % MCV 87.1 (80-100) fL MCH 29.7 (26-34) PG MCHC 34.1 (30-36) % RDW 14.2 (11.6-14.8) % Plt Count 276 (150-400) X10^3/uL Neut % (Auto) 57.9 (50-75) % Lymph % (Auto) 29.4 (25-40) % Dewey % (Auto) 11.1 (3-14) % Eos % (Auto) 1.0 L (2-4) % Baso % (Auto) 0.6 (0-2) % Neut # (Auto) 4900 (6132-2784) /uL Lymph # (Auto) 2500 (6407-7435) /uL Dewey # (Auto) 900 (0-900) /uL Eos # (Auto) 100 (0-450) /uL Baso # (Auto) 0 (0-100) /uL Sodium 137 (137-145) mmol/L Potassium 3.8 (3.4-5.1) mmol/L Chloride 106 (98-107) mmol/L Carbon Dioxide 23 (22-32) mmol/L BUN 9 (7-17) mg/dL Creatinine 0.59 (0.52-1.04) mg/dL Estimated GFR > 60.0 (>60) mL/min BUN/Creatinine Ratio 15.3 (6-22) Glucose 92 (70-100) mg/dL Calcium 9.3 (8.4-10.2) mg/dL Total Bilirubin 0.4 (0.2-1.3) mg/dL AST 35 (14-36) IU/L ALT 23 (<35) IU/L Alkaline Phosphatase 50 (38-126) U/L Total Protein 7.7 (6.3-8.2) g/dL Albumin 4.4 (3.5-5.0) g/dL Globulin 3.3 (1.7-4.1) g/dL Albumin/Globulin Ratio 1.3 (1.0-2.8) HCG, Quant 343.7 mIU/mL U Opiates 300ng/mL cut (Negative) Ur Oxycodone Screen (Negative) Urine Methadone Screen (Negative) Ur Barbiturates Screen (Negative) U Tricyclic Antidepress (Negative) Ur Phencyclidine Scrn (Negative) Ur Amphetamines Screen (Negative) U Methamphetamines Scrn (Negative) Ur MDMA Scrn (Ecstasy) (Negative) U Benzodiazepines Scrn (Negative) Urine Cocaine Screen (Negative) U Marijuana (THC) Screen (Negative) Blood Type A Negative 02/11/20 Range/Units 15:00 WBC (4.5-11.0) X10^3/uL RBC (4.0-5.2) X10^6/uL Hgb (12.0-16.0) g/dL Hct (36-46) % MCV (80-100) fL MCH (26-34) PG MCHC (30-36) % RDW (11.6-14.8) % Plt Count (150-400) X10^3/uL Neut % (Auto) (50-75) % Lymph % (Auto) (25-40) % Dewey % (Auto) (3-14) % Eos % (Auto) (2-4) % Baso % (Auto) (0-2) % Neut # (Auto) (8982-5787) /uL Lymph # (Auto) (5427-8153) /uL Dewey # (Auto) (0-900) /uL Eos # (Auto) (0-450) /uL Baso # (Auto) (0-100) /uL Sodium (137-145) mmol/L Potassium (3.4-5.1) mmol/L Chloride (98-107) mmol/L Carbon Dioxide (22-32) mmol/L BUN (7-17) mg/dL Creatinine (0.52-1.04) mg/dL Estimated GFR (>60) mL/min BUN/Creatinine Ratio (6-22) Glucose (70-100) mg/dL Calcium (8.4-10.2) mg/dL Total Bilirubin (0.2-1.3) mg/dL AST (14-36) IU/L ALT (<35) IU/L Alkaline Phosphatase (38-126) U/L Total Protein (6.3-8.2) g/dL Albumin (3.5-5.0) g/dL Globulin (1.7-4.1) g/dL Albumin/Globulin Ratio (1.0-2.8) HCG, Quant mIU/mL U Opiates 300ng/mL cut Negative (Negative) Ur Oxycodone Screen Negative (Negative) Urine Methadone Screen Negative (Negative) Ur Barbiturates Screen Negative (Negative) U Tricyclic Antidepress Negative (Negative) Ur Phencyclidine Scrn Negative (Negative) Ur Amphetamines Screen Negative (Negative) U Methamphetamines Scrn Negative (Negative) Ur MDMA Scrn (Ecstasy) Negative (Negative) U Benzodiazepines Scrn Negative (Negative) Urine Cocaine Screen Negative (Negative) U Marijuana (THC) Screen Negative (Negative) Blood Type Point of care testing: Urine Dip Bedside Urine Glucose Negative Bedside Urine Bilirubin - Negative Bedside Urine Ketone - Negative Urine Specific Howes 1.015 Bedside Urine Occult Blood - Negative Bedside Urine pH 6.5 Bedside Urine Protein - Negative Bedside Urine Urobilinogen - Negative Bedside Urine Nitrite - Negative Bedside Urine Leukocytes - Negative Esterase Imaging Data 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 Additional endovaginal scanning was necessary due to incomplete visualization of the adnexal and endometrial structures by transabdominal scanning. COMPARISON: [facility], , OB TRANSVAGINAL, 02/09/2020, 17:04. FINDINGS: Transabdominal scanning: Limited scanning through the kidneys shows no hydronephrosis. Minimal echogenic fluid within the posterior cul-de-sac and left adnexal region. Endovaginal scanning: Uterus: Uterus is normal in size at 9.3 x 4.1 x 5.1 cm. The endometrium measures 6 mm in combined thickness. No intrauterine identified. Ovaries: Right ovary measures 4.2 x 2.0 x 2.5 cm. Left ovary measures 4.0 x 1.5 x 2.6 cm. Complex right adnexal mass measuring 2.0 x 2.1 x 2.0 cm is seen superior to the right ovary (previously 1.9 x 1.9 x 1.6 cm. 1.5 x 1.5 x 1.2 cm solid appearing lesion involving the right ovary, possibly complex cyst although cannot exclude ectopic . IMPRESSION: Complex right adnexal mass, slightly increased in size since 02/09/20 as above. As before, cannot exclude ectopic . Additional solid versus complex cystic lesion involving the right ovary. No intrauterine identified Dictated by: Morgan Chong M.D. on 02/11/2020 at 15:10 Approved by: Morgan Chong M.D. on 02/11/2020 at 15:15 MDM Narrative Medical decision making narrative: Is the patient is a 24-year-old female with history of a possible ectopic versus ovarian cyst who presents with a chief complaint of continued right lower quadrant pain. She was seen in the emergency department 2 days ago, was seen by OBGYN yesterday. We did baseline labs, her beta HCG has decreased slightly and her ultrasound shows a very slightly en larged right adnexal mass. I spoke with Dr. Alcocer from OBGYN regarding the patient's labs as well as her imaging report. She would like the patient to follow-up with her OBGYN, Dr. Adam on Thursday as well as obtain repeat lab work on Thursday. She did ask me to give the patient something for pain, which I did. I discussed this at length with the patient who states accordance with plan of care. I discussed at length coming back to the emergency department for any acute concerns such as severe abdominal pain with fever, any acute changes. Patient has no questions or concerns upon discharge and states understanding return precautions as well as follow-up care. She has been hemodynamically stable throughout her stay in the emergency department. <Mahendra Walden MD - Last Filed: 02/12/20 19:21> Lab Data Labs: Lab Results 02/11/20 02/11/20 02/11/20 Range/Units 13:25 13:25 13:25 WBC 8.4 (4.5-11.0) X10^3/uL RBC 4.68 (4.0-5.2) X10^6/uL Hgb 13.9 (12.0-16.0) g/dL Hct 40.8 (36-46) % MCV 87.1 (80-100) fL MCH 29.7 (26-34) PG MCHC 34.1 (30-36) % RDW 14.2 (11.6-14.8) % Plt Count 276 (150-400) X10^3/uL Neut % (Auto) 57.9 (50-75) % Lymph % (Auto) 29.4 (25-40) % Dewey % (Auto) 11.1 (3-14) % Eos % (Auto) 1.0 L (2-4) % Baso % (Auto) 0.6 (0-2) % Neut # (Auto) 4900 (7020-3525) /uL Lymph # (Auto) 2500 (9748-7082) /uL Dewey # (Auto) 900 (0-900) /uL Eos # (Auto) 100 (0-450) /uL Baso # (Auto) 0 (0-100) /uL Sodium 137 (137-145) mmol/L Potassium 3.8 (3.4-5.1) mmol/L Chloride 106 (98-107) mmol/L Carbon Dioxide 23 (22-32) mmol/L BUN 9 (7-17) mg/dL Creatinine 0.59 (0.52-1.04) mg/dL Estimated GFR > 60.0 (>60) mL/min BUN/Creatinine Ratio 15.3 (6-22) Glucose 92 (70-100) mg/dL Calcium 9.3 (8.4-10.2) mg/dL Total Bilirubin 0.4 (0.2-1.3) mg/dL AST 35 (14-36) IU/L ALT 23 (<35) IU/L Alkaline Phosphatase 50 (38-126) U/L Total Protein 7.7 (6.3-8.2) g/dL Albumin 4.4 (3.5-5.0) g/dL Globulin 3.3 (1.7-4.1) g/dL Albumin/Globulin Ratio 1.3 (1.0-2.8) HCG, Quant 343.7 mIU/mL U Opiates 300ng/mL cut (Negative) Ur Oxycodone Screen (Negative) Urine Methadone Screen (Negative) Ur Barbiturates Screen (Negative) U Tricyclic Antidepress (Negative) Ur Phencyclidine Scrn (Negative) Ur Amphetamines Screen (Negative) U Methamphetamines Scrn (Negative) Ur MDMA Scrn (Ecstasy) (Negative) U Benzodiazepines Scrn (Negative) Urine Cocaine Screen (Negative) U Marijuana (THC) Screen (Negative) Blood Type A Negative 02/11/20 Range/Units 15:00 WBC (4.5-11.0) X10^3/uL RBC (4.0-5.2) X10^6/uL Hgb (12.0-16.0) g/dL Hct (36-46) % MCV (80-100) fL MCH (26-34) PG MCHC (30-36) % RDW (11.6-14.8) % Plt Count (150-400) X10^3/uL Neut % (Auto) (50-75) % Lymph % (Auto) (25-40) % Dewey % (Auto) (3-14) % Eos % (Auto) (2-4) % Baso % (Auto) (0-2) % Neut # (Auto) (1889-7762) /uL Lymph # (Auto) (7994-0997) /uL Dewey # (Auto) (0-900) /uL Eos # (Auto) (0-450) /uL Baso # (Auto) (0-100) /uL Sodium (137-145) mmol/L Potassium (3.4-5.1) mmol/L Chloride (98-107) mmol/L Carbon Dioxide (22-32) mmol/L BUN (7-17) mg/dL Creatinine (0.52-1.04) mg/dL Estimated GFR (>60) mL/min BUN/Creatinine Ratio (6-22) Glucose (70-100) mg/dL Calcium (8.4-10.2) mg/dL Total Bilirubin (0.2-1.3) mg/dL AST (14-36) IU/L ALT (<35) IU/L Alkaline Phosphatase (38-126) U/L Total Protein (6.3-8.2) g/dL Albumin (3.5-5.0) g/dL Globulin (1.7-4.1) g/dL Albumin/Globulin Ratio (1.0-2.8) HCG, Quant mIU/mL U Opiates 300ng/mL cut Negative (Negative) Ur Oxycodone Screen Negative (Negative) Urine Methadone Screen Negative (Negative) Ur Barbiturates Screen Negative (Negative) U Tricyclic Antidepress Negative (Negative) Ur Phencyclidine Scrn Negative (Negative) Ur Amphetamines Screen Negative (Negative) U Methamphetamines Scrn Negative (Negative) Ur MDMA Scrn (Ecstasy) Negative (Negative) U Benzodiazepines Scrn Negative (Negative) Urine Cocaine Screen Negative (Negative) U Marijuana (THC) Screen Negative (Negative) Blood Type Point of care testing: Urine Dip Bedside Urine Glucose Negative Bedside Urine Bilirubin - Negative Bedside Urine Ketone - Negative Urine Specific Howes 1.015 Bedside Urine Occult Blood - Negative Bedside Urine pH 6.5 Bedside Urine Protein - Negative Bedside Urine Urobilinogen - Negative Bedside Urine Nitrite - Negative Bedside Urine Leukocytes - Negative Esterase Discharge Plan Departure Patient Disposition: Home Clinical Impression: Abdominal pain Qualifiers: Abdominal location: right lower quadrant Qualified Code(s): R10.31 - Right lower quadrant pain Qualifiers: Weeks of gestation: less than 8 weeks Qualified Code(s): Z3A.01 - Less than 8 weeks gestation of Discharge Date/Time: 02/11/20 17:25 Instructions: DI for Ectopic , DI for Abdominal Pain -- Early Activity Restrictions/Additional Instructions: Thank you for trusting us with your care today. As discussed, I spoke with Dr Alcocer, who is Dr Adam's colleague. Please follow-up with your OBGYN as previously scheduled on Thursday. Please obtain your lab work as discussed with him. I sent a prescription of pain medicine and nausea medicine to [facility]. As discussed, your hormone has decreased slightly. It is important that we recheck this on Thursday as per your OBGYN. I have given you a prescription of a narcotic for pain. Be aware that this can be constipating and sedating. I encouraged taking with a stool softener, pushing fluids and fiber. Do not take and drive, operate heavy machinery, etc. Do not combine it with any other sedating substances such as alcohol. The comb ination of narcotics and alcohol and/or other sedatives can be lethal. As discussed, please come back to the emergency department for any acute concerns. Prescriptions: New hydrocodone-acetaminophen 5-325 mg tablet 1 tab PO Q4-6H PRN (Reason: pain) Qty: 10 RF: 0 ondansetron 4 mg tablet,disintegrating 4 mg PO Q6H PRN (Reason: nausea and vomiting) Qty: 20 RF: 0 No Action ibuprofen 200 mg Capsule 200 mg PO Q6H PRN (Reason: Pain (Scale Score 4-6)) RF: 0 acyclovir 400 mg Tablet 800 mg PO TID RF: 0 prenat.vits,malina,[id number] Tablet 1 tab PO DAILY Qty: 30 RF: 0 Referrals: Hao Adam MD [Physician] -
[2020-02-11 16:54] VITALS: BP 115/72; PULSE 69; RESP 15; O2SAT 100
== END 2020-02-11 17:25 | disposition home or self-care (01) ==
PROVIDERS: Emergency Provider Nurse Practitioner Family
DX: O26.891 Other specified pregnancy related conditions, first trimester (principal); R10.31 Right lower quadrant pain; Z3A.01 Less than 8 weeks gestation of pregnancy
CPT/HCPCS: 36415; 76830; 76856; 80053; 80305; 81003; 84702; 85025; 86900; 86901; 96374; 99284; J2405

== ENCOUNTER → 2020-02-13 15:10 | Outpatient (CLI) | payer OTHER, MEDICAID, SELFPAY ==
[2020-02-13 17:38] LABS: HCG Quantitative /Beta subunit 318.4 mIU/mL
== END ==
DX: Z34.90 Encounter for supervision of normal pregnancy, unspecified, unspecified trimester (principal); Z3A.01 Less than 8 weeks gestation of pregnancy
CPT/HCPCS: 36415; 84702

== ENCOUNTER → 2020-02-29 17:07 | Outpatient (CLI) | payer OTHER, MEDICAID, SELFPAY ==
[2020-02-29 18:01] LABS: HCG Quantitative /Beta subunit 76.4 mIU/mL
== END ==
PROVIDERS: Referring Provider Obstetrics & Gynecology; Visit Provider Obstetrics & Gynecology
DX: O20.0 Threatened abortion (principal)
CPT/HCPCS: 36415; 84702

== ENCOUNTER → 2020-03-20 14:11 | Outpatient (CLI) | payer OTHER, MEDICAID, SELFPAY ==
[2020-03-20 15:53] LABS: HCG Quantitative /Beta subunit < 2.4 mIU/mL
== END ==
PROVIDERS: Referring Provider Obstetrics & Gynecology; Visit Provider Obstetrics & Gynecology
DX: O03.9 Complete or unspecified spontaneous abortion without complication (principal)
CPT/HCPCS: 36415; 84702

== ENCOUNTER → 2020-04-12 09:07 | Outpatient (CLI) | payer OTHER, MEDICAID, SELFPAY ==
[2020-04-12 10:36] LABS: TSH w/ Reflex to FT4 2.09 uIU/mL (0.47-4.68)
== END ==
PROVIDERS: PCP Registered Nurse; Referring Provider Registered Nurse; Visit Provider Registered Nurse
DX: F32.9 Major depressive disorder, single episode, unspecified (principal); R63.5 Abnormal weight gain
CPT/HCPCS: 36415; 84443

== ENCOUNTER → 2020-04-26 17:02 | Outpatient (CLI) | payer OTHER, MEDICAID, SELFPAY ==
[2020-05-02 06:48] LABS: Chlamydia trachomatis Negative (Negative); Mycoplasma genitalium Negative (Negative); Neisseria gonorrhoeae Negative (Negative)
== END ==
PROVIDERS: PCP Registered Nurse; Visit Provider Obstetrics & Gynecology
DX: Z11.3 Encounter for screening for infections with a predominantly sexual mode of transmission (principal)
CPT/HCPCS: 87491; 87591

== ENCOUNTER 2020-09-16 11:49 | Emergency (ER) | payer OTHER, SELFPAY ==
[2020-09-16 11:53] VITALS: BP 120/89; PULSE 79; RESP 18; TEMP 36.4; O2SAT 99; BMI 29.8
--- NOTE | 2020-09-16 12:07 | DI.CT.S_ITS ---
PROCEDURE: CT HEAD/BRAIN WO CON INDICATIONS: trauma Lilibeth / head injury TECHNIQUE: Noncontrast 4.5 mm thick angled axial sections acquired from the foramen magnum to the vertex, with coronal and sagittal reformats. For radiation dose reduction, the following was used: automated exposure control, adjustment of mA and/or kV according to patient size. COMPARISON: None. FINDINGS: Image quality: Excellent. CSF spaces: Basal cisterns are patent. No extra-axial fluid collections. Ventricles are normal in size and shape. Brain: No midline shift. No intracranial masses or hemorrhage. Garcia-white matter interface is normal. Skull and face: Calvarium and visualized facial bones are intact, without suspicious lesions. Sinuses: Visualized sinuses and mastoids are clear. IMPRESSION: Negative for acute stroke, hemorrhage, or mass. No evidence of significant intracranial sequelae of acute trauma. Dictated by: Joon Hinton M.D. on 09/16/2020 at 11:39 Approved by: Joon Hinton M.D. on 09/16/2020 at 11:40
--- NOTE | 2020-09-16 12:07 | DI.CT.S_ITS ---
PROCEDURE: CT CERVICAL SPINE WO CON INDICATIONS: trauma Lilibeth / head injury TECHNIQUE: Noncontrast 3 mm thick sections acquired from the skull base to the T4 level. Sagittal and coronal reformats were then constructed. For radiation dose reduction, the following was used: automated exposure control, adjustment of mA and/or kV according to patient size. COMPARISON: None. FINDINGS: Image quality: Excellent. Bones: No fractures or dislocations. Visualized superior ribs are intact. Bursal of the normal lordotic curve of the cervical spine may be positional or may potentially represent muscle spasm. Soft tissues: Prevertebral soft tissues are normal in thickness. No paravertebral hematomas. No apical pneumothoraces. 1.9 cm right adrenal. IMPRESSION: 1. No evidence acute cervical fracture or dislocation. 2. Reversal of normal lordotic curve of the cervical spine may be positional or may represent muscle spasm. Dictated by: Joon Hinton M.D. on 09/16/2020 at 11:40 Approved by: Joon Hinton M.D. on 09/16/2020 at 11:42
--- NOTE | 2020-09-16 12:11 | DI.CT.S_ITS ---
PROCEDURE: CT FACIAL BONES WO CON INDICATIONS: hit wth large metal, jaw pain TECHNIQUE: Noncontrast 2.5 mm thick axial images acquired from the mandible through the frontal sinuses, with coronal and sagittal reformatting. For radiation dose reduction, the following was used: automated exposure control, adjustment of mA and/or kV according to patient size. COMPARISON: None. FINDINGS: Image quality: Excellent. Bones and teeth: Orbital moon are intact. Sinus moon show no fracture or deformity. Nasal bones and septum are intact. Rightward nasal septal deviation measuring 3 mm. Visualized portions of the mandible demonstrate no fractures or subluxation. Zygomatic arches are intact. Pterygoid plates are intact. Visualized portions of the skull base and auditory canals are intact. Sinuses: Paranasal sinuses are aerated, without fluid levels, mucosal thickening, or mucoceles. Mastoid air cells are aerated. Soft tissues: No edema, masses, or fluid collections. No enlarged lymph nodes. No soft tissue lacerations or debris. Vascular: Visualized vascular structures appear normal in the absence of contrast. Bony vascular foramina and canals are intact. IMPRESSION: 1. No evidence of displaced facial bone fracture or mandibular fracture. 2. No evidence of acute sinus disease. 3. Incidental note made of rightward nasal septal deviation Dictated by: Joon Hinton M.D. on 09/16/2020 at 11:43 Approved by: Joon Hinton M.D. on 09/16/2020 at 11:45
--- NOTE | 2020-09-16 12:28 | ED.HEATRA ---
HPI - Head Injury <SEAN Davalos - Last Filed: 09/16/20 15:24> General Chief complaint: Head Injury Stated complaint: Thinks Concussion, Head Injury Time Seen by Provider: 09/16/20 12:02 Source: patient Mode of arrival: Ambulatory Limitations: no limitations History of Present Illness HPI Narrative: The patient is a 25-year-old female current smoker with history of gluten intolerance who presents with a chief complaint of a head injury. 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 This broke her home it and her safety glasses. She fell to the ground, lost consciousness for which she believes to be a few seconds, however that has not been confirmed. Since she feels spacey, disoriented.She states that she had a split lip has bruising to her chin, initially had some pain opening and closing her jaw but that feels better. She states that her neck and back is painful. She has not been seen since the incident. She overall feels very tired, and has headache. Given mechanism of injury, modified trauma actived upon arrival Related Data Home Medications Medication Instructions Recorded Confirmed ibuprofen 200 mg PO Q6H PRN 01/04/19 09/16/20 levonorgestrel 20 mcg/24 hours (6 See Rx Instructions .ROUTE .COMPLEX 05/24/20 09/16/20 yrs) 52 mg intrauterine device citalopram 20 mg PO QPM 09/16/20 09/16/20 Previous Rx's Medication Instructions Recorded acyclovir 400 mg tablet 800 mg PO TID PRN 90 Days #180 tab 04/12/20 ketorolac 10 mg PO TID PRN #14 tab 09/16/20 ondansetron 4 mg PO Q6H PRN #20 tab 09/16/20 Allergies Allergy/AdvReac Type Severity Reaction Status Date / Time No Known Drug Allergies Allergy Verified 05/24/20 16:24 Review of Systems <SEAN Davalos - Last Filed: 09/16/20 15:24> Review of Systems Narrative: GENERAL: See HPI HEENT: See HPI RESPIRATORY: Denies dyspnea, cough, wheezing, hemoptysis, sputum. CARDIOVASCULAR: Denies chest pain, palpitations, orthopnea, edema, GASTROINTESTINAL: Denies nausea, vomiting, abdominal pain, diarrhea, constipation, melena. : Denies dysuria, frequency, incontinence, hematuria, urinary retention. MUSCULOSKELETAL: denies weakness, joint pain, or bony pain SKIN: See HPI NEUROLOGIC: See HPI PSYCHIATRIC: No concerning psychosocial issues. 12 point review of systems is negative except for those stated above Patient History <SEAN Davalos - Last Filed: 09/16/20 15:24> Medical History (Updated 09/16/20 @ 13:52 by SEAN Davalos) Gluten enteropathy Social History Smoking Status: Current every day smoker Smoking Status: Current every day smoker alcohol intake frequency: 0-2 drinks per day Substance Use Type: does not use Exam <SEAN Davalos - Last Filed: 09/16/20 15:24> Narrative Exam Narrative: GENERAL: This is a well-nourished, well-developed patient, in no acute distress HEAD: See skin exam. Normocephalic. No temporal or scalp tenderness. Small contusion palpable noted posterior head. EYES: Pupils equal round and reactive. Extraocular motions intact. No scleral icterus. No injection or drainage. ENT: Nose without bleeding, purulent drainage or septal hematoma. Throat without erythema, tonsillar hypertrophy or exudate. Uvula midline. Airway patent. NECK: Trachea midline. No JVD or lymphadenopathy. Supple, nontender, no meningeal signs. CARDIOVASCULAR: Regular rate and rhythm RESPIRATORY: Clear to auscultation. Breath sounds equal bilaterally. No wheezes, rales, or rhonchi. No cough. No increased respiratory effort. No accessory muscle use GASTROINTESTINAL: Abdomen soft, non-tender, nondistended. No hepato-splenomegaly, or palpable masses. No guarding. EXTREMITIES: No clubbing, cyanosis, or edema. No joint tenderness, effusion, or edema noted. BACK: Diffuse tenderness to C-spine palpation, no gross tenderness to T or L-spine palpation. NEURO: AOx3. No gross cranial nerve deficit. Clear speech. SKIN: Purple ecchymosis noted over left lower chin. No periorbital ecchymosis. No Linares signs. Initial Vital Signs Initial Vital Signs: Vital Signs Temperature 97.5 F L 09/16/20 11:53 Pulse Rate 79 03/07/21 11:53 Respiratory Rate 18 09/16/20 11:53 Blood Pressure 120/89 09/16/20 11:53 Pulse Oximetry 99 09/16/20 11:53 <Jackie Cuenca DO - Last Filed: 09/16/20 16:36> Initial Vital Signs Initial Vital Signs: Vital Signs Temperature 97.5 F L 09/16/20 11:53 Pulse Rate 79 09/16/20 11:53 Respiratory Rate 18 09/16/20 11:53 Blood Pressure 120/89 09/16/20 11:53 Pulse Oximetry 99 09/16/20 11:53 Scores <SEAN Davalos - Last Filed: 09/16/20 15:24> GCS Umu coma scale eye opening: Spontaneous [place] coma scale verbal response: Orientated [place] coma scale motor response: Obey commands Umu coma scale total score: 15 Course <SEAN Davalos - Last Filed: 09/16/20 15:24> Orders Ordered: ED Orders 09/16/20 12:07 CT cervical spine wo con Stat CT head/brain wo con Stat 09/16/20 12:11 CT facial bones wo con Stat Discontinued Medications Ketorolac Tromethamine (Ketorolac 60 Mg/2 Ml Vial) 30 mg IM NOW ONE Stop: 09/16/20 13:17 Last Admin: 09/16/20 13:31 Dose: 30 mg Documented by: BASIL Vital Signs Vital signs: Vital Signs - 8 hr 09/16/20 11:53 09/16/20 13:13 09/16/20 14:01 Temperature 97.5 F L Pulse Rate 79 70 75 Respiratory Rate 18 14 18 Blood Pressure 120/89 110/64 115/87 Pulse Oximetry 99 99 99 <Jackie Cuenca DO - Last Filed: 09/16/20 16:36> Orders Ordered: ED Orders 09/16/20 12:07 CT cervical spine wo con Stat CT head/brain wo con Stat 09/16/20 12:11 CT facial bones wo con Stat Discontinued Medications Ketorolac Tromethamine (Ketorolac 60 Mg/2 Ml Vial) 30 mg IM NOW ONE Stop: 09/16/20 13:17 Last Admin: 09/16/20 13:31 Dose: 30 mg Documented by: KSCHERE Vital Signs Vital signs: Vital Signs - 8 hr 09/16/20 11:53 09/16/20 13:13 09/16/20 14:01 Temperature 97.5 F L Pulse Rate 79 70 75 Respiratory Rate 18 14 18 Blood Pressure 120/89 110/64 115/87 Pulse Oximetry 99 99 99 MDM - Head Injury <SEAN Davalos - Last Filed: 09/16/20 15:24> Imaging Data face ct: Radiologist's Impression: [address] [place] [id number] Scan ReportSigned Patient: Kaylan Horn MMR#: [id number]: 1995Acct:[id number]/Sex: 25 / FDate of Service: 09/16/20Loc: EDAccession Number: [id number] Procedure: CT facial bones wo con Ordering Provider: Tanna Moreland PROCEDURE: CT FACIAL BONES WO CON INDICATIONS: hit wth large metal, jaw pain TECHNIQUE: Noncontrast 2.5 mm thick axial images acquired from the mandible through the frontal sinuses, with coronal and sagittal reformatting. For radiation dose reduction, the following was used: automated exposure control, adjustment of mA and/or kV according to patient size. COMPARISON: None. FINDINGS: Image quality: Excellent. Bones and teeth: Orbital moon are intact. Sinus moon show no fracture or deformity. Nasal bones and septum are intact. Rightward nasal septal deviation measuring 3 mm. Visualized portions of the mandible demonstrate no fractures or subluxation. Zygomatic arches are intact. Pterygoid plates are intact. Visualized portions of the skull base and auditory canals are intact. Sinuses: Paranasal sinuses are aerated, without fluid levels, mucosal thickening, or mucoceles. Mastoid air cells are aerated. Soft tissues: No edema, masses, or fluid collections. No enlarged lymph nodes. No soft tissue lacerations or debris. Vascular: Visualized vascular structures appear normal in the absence of contrast. Bony vascular foramina and canals are intact. IMPRESSION: 1. No evidence of displaced facial bone fracture or mandibular fracture. 2. No evidence of acute sinus disease. 3. Incidental note made of rightward nasal septal deviation Dictated by: Joon Hinton M.D. on 09/16/2020 at 11:43 Approved by: Joon Hinton M.D. on 09/16/2020 at 11:45 CT scan - head: Radiologist's Impression: [address] [place] [id number] Scan ReportSigned Patient: Kaylan Horn [facility]#: [id number]: 1995Acct:[id number]/Sex: 25 / FDate of Service: 09/16/20Loc: EDAccession Number: [id number] Procedure: CT head/brain wo con Ordering Provider: Tanna Moreland PROCEDURE: CT HEAD/BRAIN WO CON INDICATIONS: trauma Lilibeth / head injury TECHNIQUE: Noncontrast 4.5 mm thick angled axial sections acquired from the foramen magnum to the vertex, with coronal and sagittal reformats. For radiation dose reduction, the following was used: automated exposure control, adjustment of mA and/or kV according to patient size. COMPARISON: None. FINDINGS: Image quality: Excellent. CSF spaces: Basal cisterns are patent. No extra-axial fluid collections. Ventricles are normal in size and shape. Brain: No midline shift. No intracranial masses or hemorrhage. Garcia-white matter interface is normal. Skull and face: Calvarium and visualized facial bones are intact, without suspicious lesions. Sinuses: Visualized sinuses and mastoids are clear. IMPRESSION: Negative for acute stroke, hemorrhage, or mass. No evidence of significant intracranial sequelae of acute trauma. Dictated by: Joon Hinton M.D. on 09/16/2020 at 11:39 Approved by: Joon Hinton M.D. on 09/16/2020 at 11:40 CT - cervical spine: Radiologist's Impression: [address] [place] [id number] Scan ReportSigned Patient: Kaylan Horn [facility]#: [id number]: 1995Acct:[id number]/Sex: 25 / FDate of Service: 09/16/20Lo: EDAccession Number: [id number] Procedure: CT cervical spine wo con Ordering Provider: Tanna Moreland PROCEDURE: CT CERVICAL SPINE WO CON INDICATIONS: trauma Lilibeth / head injury TECHNIQUE: Noncontrast 3 mm thick sections acquired from the skull base to the T4 level. Sagittal and coronal reformats were then constructed. For radiation dose reduction, the following was used: automated exposure control, adjustment of mA and/or kV according to patient size. COMPARISON: None. FINDINGS: Image quality: Excellent. Bones: No fractures or dislocations. Visualized superior ribs are intact. Bursal of the normal lordotic curve of the cervical spine may be positional or may potentially represent muscle spasm. Soft tissues: Prevertebral soft tissues are normal in thickness. No paravertebral hematomas. No apical pneumothoraces. 1.9 cm right adrenal. IMPRESSION: 1. No evidence acute cervical fracture or dislocation. 2. Reversal of normal lordotic curve of the cervical spine may be positional or may represent muscle spasm. Dictated by: Joon Hinton M.D. on 09/16/2020 at 11:40 Approved by: Joon Hinton M.D. on 09/16/2020 at 11:42 MDM Narrative Medical decision making narrative: The patient is a 25-year-old female who presents several days after a head injury at work. She was hit in the head with a 65 lb piece of metal, with loss of consciousness. Modified trauma activated upon arrival given her mechanism and symptoms. Fortunately head CT, C-spine CT and facial CT came back with no acute findings. She is noted to have spasm the palpation of her CT of her C-spine, as well as on imaging. Given the ecchymosis to her face, palpable contusion to her head, and neurological symptoms other continued I believe that she has a concussion. I discussed at length rest over the next few days, brain rest over the next few days, follow-up with [employer] [facility] [employer] provider. 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 She was given a reap packet. I also give her prescriptions of Zofran and ketorolac, structured her to not take the ketorolac with any other NSAIDs. Discussed come back to ER for acute concerns. Patient has no questions or concerns upon discharge states understanding return precautions as well as follow-up care. Discharge Plan Departure Patient Disposition: Home Clinical Impression: Muscle spasms of neck Concussion with loss of consciousness Qualifiers: Encounter type: initial encounter Qualified Code(s): S06.0X9A - Concussion with loss of consciousness of unspecified duration, initial encounter Contusion of face Qualifiers: Encounter type: initial encounter Qualified Code(s): S00.83XA - Contusion of other part of head, initial encounter Instructions: DI for Concussion, DI for Contusion, DI for Postconcussion Syndrome, DI for Muscle Spasm Activity Restrictions/Additional Instructions: Thank you for trusting us with your care today. As discussed, your imaging came back well. However I do believe that you have a concussion. Please rest her brain over the next few days. Please call [employer] [facility] [employer] so you can get in with a follow-up provider for re-evaluation. I have given you a work note for a week so that you can get in to get re-evaluated and cleared for work. I do not want you to go back to work without being checked. I did sent 2 prescriptions to [facility]. I have given you a prescription of Toradol. This is an NSAID. Do not combine it with other NSAIDs such as Aleve or ibuprofen. I suggest taking it with some food, as it can irritate your stomach. Please rest over the next few days. Please come back to the emergency department for any acute concerns such as neurological changes, seizure activity etcetera If an injury like this happens again, please come into the emergency department immediately. Prescriptions: New ketorolac 10 mg tablet 10 mg PO TID PRN (Reason: pain) Qty: 14 RF: 0 ondansetron 4 mg tablet,disintegrating 4 mg PO Q6H PRN (Reason: nausea and vomiting) Qty: 20 RF: 0 No Action acyclovir 400 mg tablet 800 mg PO TID PRN (Reason: herpes infection) 90 Days Qty: 180 RF: 1 Mirena 20 mcg/24 hours (5 yrs) 52 mg intrauterine device See Rx Instructions .ROUTE .COMPLEX RF: 0 ibuprofen 200 mg Capsule 200 mg PO Q6H PRN (Reason: Pain (Scale Score 4-6)) RF: 0 citalopram 20 mg tablet 20 mg PO QPM RF: 0 Referrals: Pepe Cohn ARNP [Primary Care Provider] - Stand Alone Forms: Work Release Note <Jackie Cuenca DO - Last Filed: 09/16/20 16:36> Cosign ED Attending Monaature Attestation: I was immediately available in the department for consultation. Documentation has been reviewed. I agree with assessment and plan.
[2020-09-16 13:13] VITALS: BP 110/64; PULSE 70; RESP 14; O2SAT 99
[2020-09-16] MEDS: KETOROLAC 60 MG/2 ML VIAL 30 MG IM (13:31)
[2020-09-16 14:01] VITALS: BP 115/87; PULSE 75; RESP 18; O2SAT 99
== END 2020-09-16 14:01 | disposition home or self-care (01) ==
PROVIDERS: Emergency Provider Nurse Practitioner Family; PCP Registered Nurse
DX: S06.0X9A Concussion with loss of consciousness of unspecified duration, initial encounter (principal); S00.83XA Contusion of other part of head, initial encounter; M62.838 Other muscle spasm; M54.2 Cervicalgia; M54.9 Dorsalgia, unspecified; R51.9 Headache, unspecified; R41.0 Disorientation, unspecified; W18.09XA Striking against other object with subsequent fall, initial encounter; Y99.0 Civilian activity done for income or pay
CPT/HCPCS: 70450; 70486; 72125; 96372; 99284; J1885

== ENCOUNTER → 2023-12-21 12:50 | Outpatient (CLI) | payer OTHER, MEDICAID, SELFPAY ==
[2023-12-21 14:07] LABS: Add Manual Diff / Slide Review NO; Basophils Absolute Auto 100 /uL (0-100); Basophils Percent Auto 0.9 % (0-2); Eosinophils Absolute Auto 300 /uL (0-450); Eosinophils Percent Auto 3.5 % (2-4); Hematocrit 40.2 % (36-46); Hemoglobin 13.3 g/dL (12.0-16.0); Lymphocytes Absolute Auto 2300 /uL (1100-4500); Mean Corpuscular HGB Conc 33.2 % (30-36); Mean Corpuscular Hemoglobin 28.1 PG (26-34); Mean Corpuscular Volume 84.5 fL (80-100); Monocytes Absolute Auto 700 /uL (0-900); Neutrophils Absolute Auto 3900 /uL (1500-7000); Neutrophils Percent Auto 53.6 % (50-75); Platelet Count 339 X10^3/uL (150-400); Red Blood Cell Count 4.75 X10^6/uL (4.0-5.2); Red Cell Distribution Width 13.1 % (11.6-14.8); White Blood Cell Count 7.3 X10^3/uL (4.5-11.0)
[2023-12-21 14:18] LABS: Hemoglobin A1C% w Est Avg Glu 5.3 % (4.0-6.0)
[2023-12-21 14:48] LABS: HCG Quantitative /Beta subunit < 2.39 mIU/mL; Prolactin 56.4 ng/mL (3.0-18.6)
[2023-12-21 14:57] LABS: TSH w/ Reflex to FT4 1.67 uIU/mL (0.47-4.68)
[2023-12-21 17:57] LABS: Vitamin D 25 Hydroxy (D3) 22.9 ng/mL (30.0-100.0)
== END ==
PROVIDERS: Referring Provider Physician Assistant Medical; Visit Provider Physician Assistant Medical
DX: R53.83 Other fatigue (principal); R63.5 Abnormal weight gain; N64.52 Nipple discharge; R10.2 Pelvic and perineal pain; M62.89 Other specified disorders of muscle
CPT/HCPCS: 36415; 81002; 81025; 82306; 83036; 84146; 84443; 84702; 85025

== ENCOUNTER 2024-07-11 15:56 | Emergency (ER) | payer OTHER, SELFPAY ==
--- NOTE | 2024-07-11 16:30 | PC.NURSE ---
Patient called in to Triage at 1600 after she registered into emergency department, her mother accompanied her into triage room. Patient expresses that she would like a print out of her current and past medication lists and would like to set up primary care with [facility]. After a lengthy discussion about available options to obtain a medication list and establish a PCP with , patient has decided to not be triaged and be seen by a ER provider for medical screening and instead walk to Medical Records to obtain lists of medication and she states she will contact primary care clinics to arrange an appointment to establish care. Patient was provided with a new provider business card and options explained to patient about QR code, website, or phone number to make this first appointment. Patient then expressed desire to have information for finding a case investigator to help her coordinate her care and keep herself on track to a better life. Patient reports having history of mental health and currently taking antidepressants. Patient denies being currently in crisis and states that she feels like she is on a path to being better. ER-IP/MOSAIC TECHNICIAN called into triage at this time to offer resources on child welfare caseworker locally. This information was provided and patient had additional questions answered by IP/MOSAIC TECHNICIAN. This RN again confirmed with patient that she would prefer to set PCP appointment independently and seek medication lists from medical records vs. being checked into emergency department for evaluation. Patient and mother express agreement and left ER triage room at approximately 1628 with directions on how to get to Medical Records office. During this encounter with patient, she was very pleasant, was goal oriented and displayed appropriate insight to situation. She was very appreciative of resources offered. At no time did patient display concerning behavior.
== END 2024-07-11 16:30 | disposition left against medical advice (07) ==
PROVIDERS: Emergency Provider Emergency Medicine
DX: Z53.21 Procedure and treatment not carried out due to patient leaving prior to being seen by health care provider (principal)

== ENCOUNTER 2025-05-15 17:47 | Emergency (ER) | payer OTHER, SELFPAY ==
[2025-05-15] VITALS (8 sets, daily range): BP systolic 101–129; BP diastolic 59–89; PULSE 65–94; RESP 12–21; TEMP 36.9; O2SAT 96–100; BMI 29.7
[2025-05-15 19:06] LABS: Add Manual Diff / Slide Review NO; Hematocrit 43.0 % (36-46); Hemoglobin 14.7 g/dL (12.0-16.0); Lymphocytes Absolute Auto 2400 /uL (1100-4500); Mean Corpuscular HGB Conc 34.1 % (30-36); Mean Corpuscular Hemoglobin 28.1 PG (26-34); Mean Corpuscular Volume 82.4 fL (80-100); Platelet Count 278 X10^3/uL (150-400)
[2025-05-15 19:15] LABS: Alanine Aminotransferase 19 IU/L (<35); Albumin 4.5 g/dL (3.5-5.0); Albumin Globulin Ratio 1.3 (1.0-2.8); Alkaline Phosphatase 41 U/L (38-126); Blood Urea Nitrogen 16 mg/dL (7-17); Calcium 9.5 mg/dL (8.4-10.2); Carbon Dioxide 26 mmol/L (22-32); Chloride 103 mmol/L (98-107); Estimated Glomerular Filt Rate > 60 mL/min (>60); Globulin 3.4 g/dL (1.7-4.1); Glucose 109 mg/dL (70-99); HEMOLYSIS < 15 (0-50); Lipase 87 U/L (23-300); Potassium 4.1 mmol/L (3.4-5.1); Sodium 137 mmol/L (137-145); Total Protein 7.9 g/dL (6.3-8.2)
--- NOTE | 2025-05-15 20:01 | ED_ITS ---
HPI - Abdominal Pain
--- NOTE | 2025-05-15 20:01 | DI.RAD.S_ITS ---
PROCEDURE: XR ACUTE ABDOMEN SERIES
--- NOTE | 2025-05-15 20:01 | ED.ABDPAIN ---
HPI - Abdominal Pain General Chief Complaint: Abdominal Pain Stated Complaint: back and stomach pain, weak, dizzy Time Seen by Provider: 05/15/25 18:41 Source: patient Mode of arrival: Ambulatory History of Present Illness HPI narrative: 30-year-old female presents with nausea, back pain, numerous bouts of diarrhea, and headache for the past few days feeling bloated and unable to hold anything down. She denies any fever, chills, body aches, urinary complaints, chest pain, shortness of breath, sore throat, cough. Other than what is stated 14 point review system is negative. Related Data Home Medications ?Medication ?Instructions ?Recorded ?Confirmed bupropion HCl 300 mg 24 hr tablet, 300 mg PO QAM 12/21/23 12/21/23 extended release (Wellbutrin XL) hydroxyzine HCl 50 mg tablet 50 mg PO QID PRN 12/21/23 12/21/23 Previous Rx's ?Medication ?Instructions ?Recorded acyclovir 400 mg tablet 800 mg (2 x 400 mg) PO TID PRN 04/12/20 herpes infection 90 days #180 tabs ketorolac 10 mg tablet 10 mg PO TID PRN pain #14 tabs 09/16/20 ondansetron 4 mg disintegrating 4 mg PO Q6H PRN nausea and 09/16/20 tablet vomiting #20 tabs norethindrone (contraceptive) 0.35 0.35 mg PO DAILY #84 tabs 12/21/23 mg tablet (Alise-BE) polyethylene glycol 3350 17 17 g PO DAILY #476 grams 05/15/25 gram/dose oral powder (Miralax) Allergies Allergy/AdvReac Type Severity Reaction Status Date / Time No Known Drug Allergies Allergy Verified 05/15/25 18:12 Review of Systems Review of Systems ROS Unobtainable: All systems reviewed & are unremarkable except as noted in HPI and below Patient History Medical History (Updated 05/15/25 @ 21:22 by Mahendra Prescott DO) Gluten enteropathy Social History Smoking Status: Former smoker Smoking Status: Former smoker alcohol intake frequency: 0-2 drinks per day Exam Narrative Exam Narrative: GENERAL: [30] year old patient appears stated age. Well-developed patient, in mild distress. HEAD: Atraumatic. Normocephalic. EYES: Pupils equal round and reactive. Extraocular motions intact. No scleral icterus. No injection or drainage. ENT: Nose without bleeding, purulent drainage. Throat without erythema, tonsillar hypertrophy or exudate. Airway patent. NECK: Trachea midline. Non tender CARDIOVASCULAR: Regular rate and rhythm without murmurs, gallops, or rubs. RESPIRATORY: Clear to auscultation. Breath sounds equal bilaterally. No wheezes, rales, or rhonchi. GASTROINTESTINAL: Abdomen soft, non-tender, nondistended. EXTREMITIES: No edema or joint tenderness. BACK: Nontender without deformity or crepitance. No flank tenderness. NEURO: AOx3. SKIN: No rash or erythema of visible areas Initial Vital Signs Initial Vital Signs: Vital Signs Temperature 98.5 F 05/15/25 18:07 Pulse Rate 94 H 05/15/25 18:07 Respiratory Rate 18 05/15/25 18:07 Blood Pressure 129/87 05/15/25 18:07 Pulse Oximetry 98 05/15/25 18:07 Oxygen Delivery Method Room Air 05/15/25 18:07 Course Orders Ordered: ED Orders 05/15/25 18:51 Complete Blood Count AUTO DIFF Stat Comprehensive Metabolic Panel Stat Lipase Stat 05/15/25 18:53 EKG-12 Lead Stat 05/15/25 19:33 Urine Microscopic Stat 05/15/25 20:01 XR acute abdomen series Stat Ondansetron HCl (Ondansetron 4 Mg/2 Ml Inj) 4 mg IV NOW PRN PRN Reason: Nausea And Vomiting Ondansetron HCl (Ondansetron 4 Mg Odt) 4 mg PO NOW PRN PRN Reason: Nausea And Vomiting Discontinued Medications Lactated Ringer's (Lactated Ringers) 1,000 mls @ 1,000 mls/hr IV BOLUS ONE Stop: 05/15/25 20:54 Last Infusion: 05/15/25 21:19 Dose: Infused Documented By: Admin: 05/15/25 20:12 Dose: 1,000 mls/hr Documented By: JASMIN Ketorolac Tromethamine (Ketorolac 30 Mg/Ml Vial) 15 mg IV NOW ONE Stop: 05/15/25 20:01 Last Admin: 05/15/25 20:12 Dose: 15 mg Documented By: JASMIN Vital Signs Vital signs: Vital Signs - 8 hr 05/15/25 18:07 05/15/25 18:55 05/15/25 19:00 Temperature 98.5 F Pulse Rate 94 H 91 H 88 Respiratory Rate 18 12 13 Blood Pressure 129/87 Pulse Oximetry 98 96 97 Oxygen Delivery Method Room Air 05/15/25 19:00 05/15/25 19:31 05/15/25 19:32 Temperature Pulse Rate 65 89 Respiratory Rate 15 21 Blood Pressure 119/89 119/89 Pulse Oximetry 98 99 Oxygen Delivery Method Room Air 05/15/25 19:32 05/15/25 20:00 05/15/25 20:00 Temperature Pulse Rate 81 Respiratory Rate 19 Blood Pressure 126/87 115/81 Pulse Oximetry 99 Oxygen Delivery Method 05/15/25 20:30 05/15/25 20:30 05/15/25 21:00 Temperature Pulse Rate 86 Respiratory Rate 14 Blood Pressure 108/68 101/59 L Pulse Oximetry 100 Oxygen Delivery Method 05/15/25 21:00 Temperature Pulse Rate 79 Respiratory Rate 12 Blood Pressure Pulse Oximetry 98 Oxygen Delivery Method MDM - Abdominal Pain Lab Data 05/15/25 18:51 05/15/25 18:51 Labs: Lab Results 05/15/25 05/15/25 Range/Units 18:51 19:33 WBC 7.4 (4.5-11.0) X10^3/uL RBC 5.21 H (4.0-5.2) X10^6/uL Hgb 14.7 (12.0-16.0) g/dL Hct 43.0 (36-46) % MCV 82.4 (80-100) fL MCH 28.1 (26-34) PG MCHC 34.1 (30-36) % RDW 13.1 (11.6-14.8) % Plt Count 278 (150-400) X10^3/uL Neut % (Auto) 54.4 (50-75) % Lymph % (Auto) 32.4 (25-40) % [place] % (Auto) 9.4 (3-14) % Eos % (Auto) 2.6 (2-4) % Baso % (Auto) 1.2 (0-2) % Neut # (Auto) 4000 (1670-9452) /uL Lymph # (Auto) 2400 (7143-4498) /uL [place] # (Auto) 700 (0-900) /uL Eos # (Auto) 200 (0-450) /uL Baso # (Auto) 100 (0-100) /uL Sodium 137 (137-145) mmol/L Potassium 4.1 (3.4-5.1) mmol/L Chloride 103 (98-107) mmol/L Carbon Dioxide 26 (22-32) mmol/L BUN 16 (7-17) mg/dL Creatinine 0.59 (0.52-1.04) mg/dL Estimated GFR > 60 (>60) mL/min BUN/Creatinine Ratio 27.1 H (6-22) Glucose 109 H (70-99) mg/dL Calcium 9.5 (8.4-10.2) mg/dL Total Bilirubin 0.2 (0.2-1.3) mg/dL AST 27 (14-36) IU/L ALT 19 (<35) IU/L Alkaline Phosphatase 41 (38-126) U/L Total Protein 7.9 (6.3-8.2) g/dL Albumin 4.5 (3.5-5.0) g/dL Globulin 3.4 (1.7-4.1) g/dL Albumin/Globulin Ratio 1.3 (1.0-2.8) Lipase 87 (23-300) U/L Urine RBC 0-1/hpf (0-5/HPF) Urine WBC 0-1/hpf (0-5/HPF) Ur Squamous Epith Cells 0-1 /hpf (0-5/HPF) Urine Bacteria Occasional (0-1) (None) Ur Culture Indicated? Cult not indicated Vol Urine Centrifuged 10ml (spun) Point of care testing: Point of Care Testing Test Results Negative Urine Dip Bedside Urine Glucose Negative Bedside Urine Bilirubin - Negative Bedside Urine Ketone - Negative Urine Specific [place] 1.010 Bedside Urine Occult Blood +/- Bedside Urine pH 6.0 Bedside Urine Protein - Negative Bedside Urine Urobilinogen - Negative Bedside Urine Nitrite - Negative Bedside Urine Leukocytes - Negative Esterase Imaging Data Extremity x-ray #1: Radiologist's Impression: [address] [id number] XRay Report Signed Patient: Kaylan Horn MR#: [id number] : 1995 Acct:[id number] Age/Sex: 30 / F Date of Service: 05/15/25 Loc: ED Accession Number: [id number] Procedure: XR acute abdomen series Ordering Provider: Mahendra Prescott D.O. PROCEDURE: XR ACUTE ABDOMEN SERIES INDICATIONS: abd pain TECHNIQUE: One view chest and two views of the abdomen were acquired. COMPARISON: None. FINDINGS AND IMPRESSION: Chest: On this single view study, no airspace consolidation or pleural effusion. No pneumoperitoneum identified. Normal heart size. Unremarkable osseous structures. Abdomen: Moderate to large colonic fecal loading without specific radiographic signs for obstruction. No suspicious soft tissue calcifications. Unremarkable osseous structures. Consider CT if there is further clinical concern in the setting of abdominal pain. Dictated by: Antolin Carcamo M.D. on 05/15/2025 at 20:55 Approved by: Antolin Carcamo M.D. on 05/15/2025 at 20:56 ECG Data Interpretation: NSR HR 86 WV 158 QRS [address]-t wave change No previous EKG to compare MDM Narrative Medical decision making narrative: All lab work, vital signs, nurse triage note, medication list, previous ER visits, and all imaging studies reviewed. WBC 7.4 globulin 14.7 platelet 278 sodium 137 potassium 4.1 chloride 103 CO2 26 BUN 16 creatinine 0.59 glucose 109 LFTs normal urine did not show any acute process. X-ray showed moderate to large colonic fecal loading without specific radiographic signs for obstruction. No suspicious soft tissue calcification. Patient given fluids Toradol and Zofran. Patient will be discharged on MiraLax. Differential diagnosis includes COVID flu RSV viral gastroenteritis electrolyte derangement dehydration. Discharge Plan Departure Patient Disposition: Home Clinical Impression: Constipation Qualifiers: Constipation type: slow transit constipation Qualified Code(s): K59.01 - Slow transit constipation Instructions: DI for Constipation Activity Restrictions/Additional Instructions: Return with new or worsening symptoms. Keep hydrated. Take medicine as directed. Follow up PCP in 1 week if no improvement in symptoms. Prescriptions: New polyethylene glycol 3350 [Miralax] 17 gram/dose powder 17 g PO DAILY Qty: 476 0RF No Action acyclovir 400 mg tablet 800 mg PO TID PRN (Reason: herpes infection) 90 Days Qty: 180 1RF hydroxyzine HCl 50 mg tablet 50 mg PO QID PRN bupropion HCl [Wellbutrin XL] 300 mg tablet extended release 24 hr 300 mg PO QAM norethindrone (contraceptive) [Alise-BE] 0.35 mg tablet 0.35 mg PO DAILY Qty: 84 1RF ketorolac 10 mg tablet 10 mg PO TID PRN (Reason: pain) Qty: 14 0RF ondansetron 4 mg tablet,disintegrating 4 mg PO Q6H PRN (Reason: nausea and vomiting) Qty: 20 0RF Referrals: Miscellaneous,Doctor, MD [Primary Care Provider, Medical] Stand Alone Forms: Patient Portal/API
[2025-05-15] MEDS: LACTATED RINGERS 1,000 ML 1000 ML IV (20:12)
[2025-05-15] MEDS: KETOROLAC 30 MG/ML VIAL 15 MG IV (20:12)
[2025-05-15 20:21] LABS: Culture Indicated Urine Cult Not Indicated
== END 2025-05-15 21:27 | disposition home or self-care (01) ==
PROVIDERS: Emergency Provider Family Medicine
DX: K59.01 Slow transit constipation (principal); R10.9 Unspecified abdominal pain
CPT/HCPCS: 36415; 74022; 80053; 81003; 81015; 81025; 83690; 85025; 93005; 96361; 96374; 99284; J1885; J7120